=== PATIENT | male | born 1965 | race Caucasian/White ===

== ENCOUNTER 2016-09-20 10:45 | Emergency (ER) | payer MEDICAID ==
[~2016-09-20] VITALS: Ht 170.2 cm; Wt 80.0 kg
[~2016-09-20 10:45] MED LIST: ALLO300T2 PO; AMLO10TA80 PO; ATOR80TA PO; COLC0.6T66 PO; Folic Acid PO; GLIP10TA72 PO; Multivitamins,Ther W-Minerals PO; Propranolol Hcl PO
[2016-09-20] MEDS ORDERED: KETOROLAC 60MG/2ML VIAL IM ONE (11:45)
[2016-09-20 12:15] VITALS: BP 160/73
[2016-09-20] MEDS ORDERED: PREDNISONE 20MG TABLET PO ONE (13:15)
[2016-09-20 14:03] LABS: BASOPHILS % 0.9 % (0.0-2.0); EOSINOPHILS % 2.2 % (0.0-5.0); HEMATOCRIT. 35.1 % (42.0-52.0); HEMOGLOBIN. 11.8 g/dL (14.0-18.0); LYMPHOCYTES % 11.6 % (20.0-50.0); MEAN CORPUSCULAR HEMOGLOBIN 29.1 pg (28.0-32.0); MEAN CORPUSCULAR VOLUME 86.4 fL (80.0-94.0); MEAN PLATELET VOLUME 7.6 fl (7.4-10.4); MONOCYTES % 10.5 % (2.0-8.0); NEUTROPHILS % 74.8 % (40.0-76.0); PLATELET 208 x1000/uL (130-400); RED BLOOD CELL COUNT 4.07 mill/uL (4.7-6.1); RED CELL DISTRIBUTION WIDTH 14.8 % (11.6-14.6)
== END 2016-09-20 15:17 | disposition home or self-care (01) ==
LOC: ER 12:00
DX: M79.641 Pain in right hand (principal); M25.532 Pain in left wrist; E11.9 Type 2 diabetes mellitus without complications; M79.89 Other specified soft tissue disorders; F17.200 Nicotine dependence, unspecified, uncomplicated
CPT/HCPCS: 36415; 73110; 73130; 85025; 96372; 99285; J1885; J7512

== ENCOUNTER 2017-03-13 18:17 | Inpatient (IN) | payer MEDICAID ==
[~2017-03-13] VITALS: Ht 165.1 cm; Wt 77.1 kg
[~2017-03-13 18:17] MED LIST changes: +GLIP10TA3 PO; -GLIP10TA72 PO
[2017-03-13] MEDS ORDERED: NITROGLYCERIN OINT 1GM/INCH UDPKT TD STA (21:31)
[2017-03-13] MEDS ORDERED: MORPHINE SULFATE 4 MG/ML CPJ (NOT FOR IM USE) IV STA (21:31)
[2017-03-13] MEDS ORDERED: ASPIRIN 325MG EC TABLET PO ONE (21:45)
[2017-03-13 22:04] LABS: BASOPHILS % 1.4 % (0.0-2.0); HEMATOCRIT. 38.4 % (42.0-52.0); HEMOGLOBIN. 13.1 g/dL (14.0-18.0); LYMPHOCYTES % 22.4 % (20.0-50.0); MEAN CORPUSCULAR HEMOGLOBIN 30.4 pg (28.0-32.0); MEAN CORPUSCULAR VOLUME 89.2 fL (80.0-94.0); MEAN PLATELET VOLUME 7.5 fl (7.4-10.4); MONOCYTES % 14.1 % (2.0-8.0); NEUTROPHILS % 58.1 % (40.0-76.0); PLATELET 177 x1000/uL (130-400); RED BLOOD CELL COUNT 4.31 mill/uL (4.7-6.1); RED CELL DISTRIBUTION WIDTH 14.4 % (11.6-14.6)
[2017-03-13 22:11] LABS: CARBON DIOXIDE 26 mEq/L (21-32)
[2017-03-13 22:17] LABS: TROPONIN I < 0.02 ng/mL (0.00-0.04)
[2017-03-13 22:18] LABS: CHLORIDE 104 mEq/L (98-107)
[2017-03-14 09:00] VITALS: BP 190/100
[2017-03-14] MEDS ORDERED: CLONIDINE 0.1MG TABLET PO PRN (09:30)
[2017-03-14] MEDS ORDERED: DEXTROSE 50% WATER 50ML SYRINGE IV PRN (09:30)
[2017-03-14] MEDS ORDERED: NITROGLYCERIN 0.4MG TABLET SL SL PRN (09:30)
[2017-03-14] MEDS ORDERED: ONDANSETRON HCL 4MG/2ML VIAL IV PRN (09:30)
[2017-03-14 09:37] VITALS: BP 190/103
[2017-03-14] MEDS: METOPROLOL TARTRATE 50MG TABLET PO SCH ×2 (11:11→21:05)
[2017-03-14] MEDS: ASPIRIN 81MG TABLET PO SCH (11:12)
[2017-03-14] MEDS: AMLODIPINE 10MG TABLET PO SCH (11:12)
[2017-03-14] MEDS: ALLOPURINOL 300 MG TABLET PO SCH (11:15)
[2017-03-14] MEDS ORDERED: CLONIDINE 0.2MG TABLET PO PRN ×2 (11:30)
[2017-03-14] MEDS ORDERED: REGADENOSON 0.4 MG/5 ML IV NR (11:50)
[2017-03-14 12:00] VITALS: BP 152/91
[2017-03-14] MEDS: BLOOD SUGAR DIAGNOSTIC STRIP TEST SCH ×3 (12:04→21:07)
[2017-03-14] MEDS: INSULIN LISPRO 100 UNITS/ML SUBCUT SCH ×3 (12:50→21:07)
[2017-03-14] MEDS: CLONIDINE 0.1MG TABLET PO SCH ×2 (13:49→21:05)
[2017-03-14] MEDS: HYDRALAZINE HCL 25MG TABLET PO SCH ×2 (13:49→21:05)
[2017-03-14 14:02] LABS: *AMPHETAMINES SCREEN URINE NEGATIVE (NEGATIVE); *BARBITURATES SCREEN URINE NEGATIVE (NEGATIVE); *BENZODIAZEPINES SCREEN URINE NEGATIVE (NEGATIVE); *COCAINE SCREEN URINE NEGATIVE (NEGATIVE); CANNABINOID URINE SCREEN NEGATIVE (NEGATIVE); METHADONE URINE SCREEN NEGATIVE (NEGATIVE); OPIATES URINE SCREEN PRESUMTIVE POSITIVE (NEGATIVE); PHENCYCLIDINE URINE SCREEN NEGATIVE (NEGATIVE)
[2017-03-14 14:41] LABS: TROPONIN I < 0.02 ng/mL (0.00-0.04)
[2017-03-14 16:00] VITALS: BP 159/98
[2017-03-14 20:05] VITALS: BP 163/91
[2017-03-14] MEDS: HYDROCODONE/ACETAMINOPHEN 5/325MG TABLET PO PRN (20:16)
[2017-03-14] MEDS ORDERED: ATORVASTATIN CALCIUM 40MG TABLET PO SCH (21:00)
[2017-03-15] VITALS: BP 112/63
[2017-03-15 04:00] VITALS: BP 129/89
[2017-03-15] MEDS: HYDRALAZINE HCL 25MG TABLET PO SCH ×2 (06:00→15:09)
[2017-03-15] MEDS: CLONIDINE 0.1MG TABLET PO SCH ×2 (06:07→15:10)
[2017-03-15] MEDS: HYDROCODONE/ACETAMINOPHEN 5/325MG TABLET PO PRN (06:08)
[2017-03-15] MEDS: BLOOD SUGAR DIAGNOSTIC STRIP TEST SCH ×3 (06:15→17:20)
[2017-03-15 07:02] LABS: EOSINOPHILS % 3.1 % (0.0-5.0); HEMATOCRIT. 33.2 % (42.0-52.0); HEMOGLOBIN. 11.3 g/dL (14.0-18.0); LYMPHOCYTES % 14.2 % (20.0-50.0); MEAN CORPUSCULAR HEMOGLOBIN 30.2 pg (28.0-32.0); MEAN CORPUSCULAR VOLUME 88.4 fL (80.0-94.0); MONOCYTES % 9.9 % (2.0-8.0); NEUTROPHILS % 71.8 % (40.0-76.0); PLATELET 147 x1000/uL (130-400); RED BLOOD CELL COUNT 3.75 mill/uL (4.7-6.1); RED CELL DISTRIBUTION WIDTH 14.4 % (11.6-14.6)
[2017-03-15 07:42] LABS: CARBON DIOXIDE 26 mEq/L (21-32); CHLORIDE 103 mEq/L (98-107); HDL CHOLESTEROL 84 mg/dL (40-59); LDL CHOLESTEROL 165 mg/dL (5-100); TROPONIN I < 0.02 ng/mL (0.00-0.04)
[2017-03-15] MEDS: INSULIN LISPRO 100 UNITS/ML SUBCUT SCH ×2 (07:50→12:50)
[2017-03-15 08:14] VITALS: BP 115/83
[2017-03-15] MEDS ORDERED: REGADENOSON 0.4 MG/5 ML IV ONE (09:29)
[2017-03-15 12:18] VITALS: BP 141/95
[2017-03-15] MEDS: ALLOPURINOL 300 MG TABLET PO SCH (13:14)
[2017-03-15] MEDS: AMLODIPINE 10MG TABLET PO SCH (13:14)
[2017-03-15] MEDS: ASPIRIN 81MG TABLET PO SCH (13:15)
[2017-03-15] MEDS: METOPROLOL TARTRATE 50MG TABLET PO SCH (13:16)
[2017-03-15] MEDS ORDERED: SODIUM CHLORIDE 0.9% 10ML VIAL ONE (14:04)
[2017-03-15 16:12] VITALS: BP 119/74
[2017-03-15] MEDS ORDERED: HYDR100T26 PO (16:13)
[2017-03-15] MEDS ORDERED: METO100T16 PO (16:13)
[2017-03-15 17:51] VITALS: BP 135/76
[2017-03-15] MEDS ORDERED: METOPROLOL TARTRATE 100MG TABLET PO SCH (21:00)
[2017-03-15] MEDS ORDERED: ATORVASTATIN CALCIUM 40MG TABLET PO SCH (21:00)
== END 2017-03-15 18:05 | disposition home or self-care (01) | DRG 199 ==
LOC: ER 18:17 → 6WST 03-14 00:02 → EDBEDREQ 03-14 02:48 → ENRESERV 03-14 07:41
PROVIDERS: ADMIT Internal Medicine; ATTEND Internal Medicine
DX: I13.10 Hypertensive heart and chronic kidney disease without heart failure, with stage 1 through stage 4 chronic kidney disease, or unspecified chronic kidney disease (principal); E43 Unspecified severe protein-calorie malnutrition; E11.22 Type 2 diabetes mellitus with diabetic chronic kidney disease; M94.0 Chondrocostal junction syndrome [Tietze]; Z68.28 Body mass index [BMI] 28.0-28.9, adult; D64.9 Anemia, unspecified; N17.9 Acute kidney failure, unspecified; N18.3 Chronic kidney disease, stage 3 (moderate); E66.9 Obesity, unspecified; E78.00 Pure hypercholesterolemia, unspecified; E78.5 Hyperlipidemia, unspecified; F10.10 Alcohol abuse, uncomplicated; F17.210 Nicotine dependence, cigarettes, uncomplicated; R94.31 Abnormal electrocardiogram [ECG] [EKG]; I25.10 Atherosclerotic heart disease of native coronary artery without angina pectoris; M10.9 Gout, unspecified; Z82.49 Family history of ischemic heart disease and other diseases of the circulatory system; Z83.3 Family history of diabetes mellitus; Z79.899 Other long term (current) drug therapy; Z71.41 Alcohol abuse counseling and surveillance of alcoholic
CPT/HCPCS: 36415; 71045; 78452; 80053; 80061; 80305; 82553; 82962; 83036; 83690; 83735; 84443; 84484; 85025; 85379; 93005; 93017; 93306; 96374; 99285; A4216; A9500; J1815; J2270; J2785

== ENCOUNTER 2017-08-01 23:56 | Emergency (ER) | payer MEDICAID ==
[~2017-08-01] VITALS: Ht 170.2 cm; Wt 72.0 kg
[~2017-08-01 23:56] MED LIST changes: -COLC0.6T66 PO; +FERR325T23 PO; -Folic Acid PO; +HYDR100T26 PO; +METO100T16 PO; -Propranolol Hcl PO
[2017-08-02 06:45] VITALS: BP 128/80
== END 2017-08-02 06:54 | disposition home or self-care (01) ==
LOC: ER 23:56
DX: F10.129 Alcohol abuse with intoxication, unspecified (principal); M79.604 Pain in right leg; E11.9 Type 2 diabetes mellitus without complications; I10 Essential (primary) hypertension; Y90.5 Blood alcohol level of 100-119 mg/100 ml; Z86.73 Personal history of transient ischemic attack (TIA), and cerebral infarction without residual deficits
CPT/HCPCS: 36415; 99283; G0482; Z7610

== ENCOUNTER 2017-08-03 04:16 | Inpatient (IN) | payer MEDICAID ==
[~2017-08-03] VITALS: Ht 170.2 cm; Wt 94.8 kg
[2017-08-03] MEDS ORDERED: SODIUM CHLORIDE 0.9% 1,000 ML IV ONE (04:30)
[2017-08-03] MEDS ORDERED: DEXT 10% WATER 1,000 ML IV ONE (04:30)
[2017-08-03 05:13] LABS: BASOPHILS % 1.4 % (0.0-2.0); EOSINOPHILS % 2.4 % (0.0-5.0); HEMATOCRIT. 34.2 % (42.0-52.0); HEMOGLOBIN. 11.4 g/dL (14.0-18.0); LYMPHOCYTES % 22.6 % (20.0-50.0); MEAN CORPUSCULAR HEMOGLOBIN 28.1 pg (28.0-32.0); MEAN CORPUSCULAR VOLUME 84.3 fL (80.0-94.0); MEAN PLATELET VOLUME 7.6 fl (7.4-10.4); MONOCYTES % 5.2 % (2.0-8.0); NEUTROPHILS % 68.4 % (40.0-76.0); PLATELET 343 x1000/uL (130-400); RED BLOOD CELL COUNT 4.06 mill/uL (4.7-6.1); RED CELL DISTRIBUTION WIDTH 16.2 % (11.6-14.6)
[2017-08-03 05:24] LABS: CHLORIDE 110 mEq/L (98-107)
[2017-08-03 05:28] LABS: ETHANOL BLOOD 75 mg/dL
[2017-08-03 05:33] LABS: CREATINE KINASE 276 IU/L (39-308)
[2017-08-03 05:44] LABS: AMMONIA 10 uMol/L (<32)
[2017-08-03 07:02] LABS: CLARITY URINE CLEAR (CLEAR); COLOR URINE YELLOW (YELLOW); KETONES URINE NEGATIVE (NEGATIVE); LEUKOCYTE ESTERASE URINE NEGATIVE (NEGATIVE); NITRITE URINE NEGATIVE (NEGATIVE); OCCULT BLOOD URINE NEGATIVE (NEGATIVE); PROTEIN URINE 2+ (NEGATIVE); SPECIFIC GRAVITY URINE 1.007 (1.005-1.030); UROBILINOGEN URINE 0.2 E.U./dL (0.2-1.0)
[2017-08-03 07:30] LABS: *BARBITURATES SCREEN URINE NEGATIVE (NEGATIVE); CANNABINOID URINE SCREEN NEGATIVE (NEGATIVE); METHADONE URINE SCREEN NEGATIVE (NEGATIVE); OPIATES URINE SCREEN NEGATIVE (NEGATIVE); PHENCYCLIDINE URINE SCREEN NEGATIVE (NEGATIVE)
[2017-08-03 07:31] LABS: *BENZODIAZEPINES SCREEN URINE PRESUMTIVE POSITIVE (NEGATIVE); *COCAINE SCREEN URINE NEGATIVE (NEGATIVE)
[2017-08-03 07:37] LABS: *AMPHETAMINES SCREEN URINE NEGATIVE (NEGATIVE)
[2017-08-03 23:26] VITALS: BP 180/109
[2017-08-03 23:30] VITALS: BP 180/109
[2017-08-04] MEDS ORDERED: DEXTROSE 50% WATER 50ML SYRINGE IV PRN (01:15)
[2017-08-04] MEDS ORDERED: COLC0.6C3 PO (01:20)
[2017-08-04 04:00] VITALS: BP 150/91
[2017-08-04] MEDS: BLOOD SUGAR DIAGNOSTIC STRIP TEST SCH ×2 (05:57→13:00)
[2017-08-04] MEDS: HYDRALAZINE HCL 100MG TABLET PO SCH ×2 (05:57→14:16)
[2017-08-04] MEDS: INSULIN LISPRO 100 UNITS/ML SUBCUT SCH ×2 (06:13→13:04)
[2017-08-04] MEDS: HYDROCODONE/ACETAMINOPHEN 10/325MG TABLET PO PRN ×2 (06:39→14:16)
[2017-08-04 07:20] LABS: BASOPHILS % 0.9 % (0.0-2.0); EOSINOPHILS % 6.4 % (0.0-5.0); HEMATOCRIT. 31.6 % (42.0-52.0); HEMOGLOBIN. 10.6 g/dL (14.0-18.0); LYMPHOCYTES % 15.1 % (20.0-50.0); MEAN CORPUSCULAR HEMOGLOBIN 28.2 pg (28.0-32.0); MEAN CORPUSCULAR VOLUME 84.1 fL (80.0-94.0); MEAN PLATELET VOLUME 7.8 fl (7.4-10.4); MONOCYTES % 7.7 % (2.0-8.0); NEUTROPHILS % 69.9 % (40.0-76.0); PLATELET 297 x1000/uL (130-400); RED BLOOD CELL COUNT 3.75 mill/uL (4.7-6.1)
[2017-08-04 07:55] VITALS: BP 122/78
[2017-08-04 08:00] LABS: CHLORIDE 111 mEq/L (98-107)
[2017-08-04 08:15] LABS: HDL CHOLESTEROL 79 mg/dL (40-59); LDL CHOLESTEROL 52 mg/dL (5-100)
[2017-08-04] MEDS ORDERED: [UNRECOGNIZED DRUG - OTHER] PO SCH (09:00)
[2017-08-04] MEDS ORDERED: FOLIC ACID 1MG TABLET PO SCH (09:00)
[2017-08-04] MEDS ORDERED: MULTIVITAMINS,THER W-MINERALS TABLET PO SCH (09:00)
[2017-08-04] MEDS ORDERED: AMLODIPINE 10MG TABLET PO SCH (09:00)
[2017-08-04] MEDS ORDERED: ALLOPURINOL 300 MG TABLET PO SCH (09:00)
[2017-08-04] MEDS ORDERED: METOPROLOL TARTRATE 100MG TABLET PO SCH (09:00)
[2017-08-04] MEDS ORDERED: THIAMINE HCL 100MG TABLET PO SCH (09:00)
[2017-08-04] MEDS: FERROUS SULFATE 325MG TABLET PO SCH ×2 (09:18→13:05)
[2017-08-04] MEDS ORDERED: PNEUMOCOCCAL 23-VAL P-SAC VAC 0.5 ML IM ONE (10:00)
[2017-08-04 12:00] VITALS: BP 122/79
[2017-08-04 14:20] VITALS: BP 122/79
[2017-08-04] MEDS ORDERED: ATORVASTATIN CALCIUM 40MG TABLET PO SCH (21:00)
[2017-08-04] MEDS ORDERED: MEDICATION NOT ON FORMULARY EA (Atorvastatin Calcium (Lipitor) 80 MG) PO SCH (21:00)
== END 2017-08-04 15:44 | disposition home or self-care (01) | DRG 420 ==
LOC: ER 04:16 → 8WST 07:43 → ENRESERV 20:10
PROVIDERS: ADMIT Internal Medicine; ATTEND Internal Medicine
DX: E11.649 Type 2 diabetes mellitus with hypoglycemia without coma (principal); E44.0 Moderate protein-calorie malnutrition; N18.3 Chronic kidney disease, stage 3 (moderate); E11.22 Type 2 diabetes mellitus with diabetic chronic kidney disease; E88.09 Other disorders of plasma-protein metabolism, not elsewhere classified; I69.351 Hemiplegia and hemiparesis following cerebral infarction affecting right dominant side; I12.9 Hypertensive chronic kidney disease with stage 1 through stage 4 chronic kidney disease, or unspecified chronic kidney disease; E78.5 Hyperlipidemia, unspecified; M10.9 Gout, unspecified; Z60.2 Problems related to living alone; D64.9 Anemia, unspecified; F10.129 Alcohol abuse with intoxication, unspecified; Z86.73 Personal history of transient ischemic attack (TIA), and cerebral infarction without residual deficits; Z79.899 Other long term (current) drug therapy; Z68.32 Body mass index [BMI] 32.0-32.9, adult
CPT/HCPCS: 36415; 70450; 71045; 74176; 80053; 80061; 80305; 81003; 82140; 82550; 82962; 83036; 83605; 83690; 83880; 84484; 85025; 85610; 90732; 93005; G0482; J1815; J7030

== ENCOUNTER 2017-08-10 16:44 | Emergency (ER) | payer MEDICAID ==
[~2017-08-10] VITALS: Ht 167.6 cm; Wt 76.0 kg
[~2017-08-10 16:44] MED LIST changes: +COLC0.6C3 PO; -GLIP10TA3 PO
[2017-08-10] MEDS ORDERED: KETOROLAC 30MG/ML VIAL IM ONE (17:00)
[2017-08-10] MEDS ORDERED: MORPHINE SULFATE 10 MG/ML CPJ IM ONE (17:00)
[2017-08-10 17:35] LABS: BASOPHILS % 1.4 % (0.0-2.0); EOSINOPHILS % 6.7 % (0.0-5.0); HEMATOCRIT. 31.6 % (42.0-52.0); HEMOGLOBIN. 10.6 g/dL (14.0-18.0); LYMPHOCYTES % 30.7 % (20.0-50.0); MEAN CORPUSCULAR VOLUME 83.2 fL (80.0-94.0); MEAN PLATELET VOLUME 7.6 fl (7.4-10.4); MONOCYTES % 6.3 % (2.0-8.0); NEUTROPHILS % 54.9 % (40.0-76.0); PLATELET 256 x1000/uL (130-400); RED BLOOD CELL COUNT 3.79 mill/uL (4.7-6.1); RED CELL DISTRIBUTION WIDTH 15.8 % (11.6-14.6)
[2017-08-10 17:41] LABS: CHLORIDE 101 mEq/L (98-107)
[2017-08-10 17:42] LABS: INR 0.9; PARTIAL THROMBOPLASTIN TIME 29.6 sec (23.4-31.0); PROTHROMBIN TIME 9.8 sec (9.4-11.6)
[2017-08-10 17:49] LABS: CREATINE KINASE 206 IU/L (39-308)
[2017-08-10 19:48] VITALS: BP 140/70
== END 2017-08-10 19:51 | disposition home or self-care (01) ==
LOC: ER 16:44
DX: M71.21 Synovial cyst of popliteal space [Baker], right knee (principal); M71.22 Synovial cyst of popliteal space [Baker], left knee; M79.604 Pain in right leg; I10 Essential (primary) hypertension; E11.9 Type 2 diabetes mellitus without complications; M10.9 Gout, unspecified; F17.200 Nicotine dependence, unspecified, uncomplicated; F10.10 Alcohol abuse, uncomplicated; Y90.9 Presence of alcohol in blood, level not specified; Z86.73 Personal history of transient ischemic attack (TIA), and cerebral infarction without residual deficits
CPT/HCPCS: 36415; 80053; 82550; 83690; 84443; 84484; 85025; 85610; 85730; 93970; 96372; 99285; J1885; J2270

== ENCOUNTER 2017-08-25 17:13 | Emergency (ER) | payer MEDICAID ==
[~2017-08-25] VITALS: Ht 167.6 cm; Wt 87.0 kg
[2017-08-25 17:14] VITALS: BP 143/66
== END 2017-08-26 01:00 | disposition left against medical advice (07) ==
LOC: ER 17:20
DX: Z53.21 Procedure and treatment not carried out due to patient leaving prior to being seen by health care provider (principal)

== ENCOUNTER 2017-08-28 19:50 | Emergency (ER) | payer MEDICAID ==
[~2017-08-28] VITALS: Ht 167.6 cm; Wt 81.0 kg
[2017-08-28] MEDS ORDERED: KETOROLAC 30MG/ML VIAL IV STA (21:54)
[2017-08-28] MEDS ORDERED: SODIUM CHLORIDE 0.9% 1,000 ML IV ONE (21:54)
[2017-08-28 22:44] VITALS: BP 151/55
== END 2017-08-29 01:13 | disposition home or self-care (01) ==
LOC: ER 20:19
DX: M10.9 Gout, unspecified (principal); E11.9 Type 2 diabetes mellitus without complications; I10 Essential (primary) hypertension; Z86.73 Personal history of transient ischemic attack (TIA), and cerebral infarction without residual deficits; F10.129 Alcohol abuse with intoxication, unspecified
CPT/HCPCS: 96374; 99285; J1885; J7030; J7040; Z7610

== ENCOUNTER 2017-09-26 22:41 | Inpatient (IN) | payer MEDICAID ==
[~2017-09-26] VITALS: Ht 170.2 cm; Wt 72.6 kg
[2017-09-27 00:22] LABS: BASOPHILS % 1.7 % (0.0-2.0); EOSINOPHILS % 2.8 % (0.0-5.0); HEMATOCRIT. 24.6 % (42.0-52.0); HEMOGLOBIN. 8.2 g/dL (14.0-18.0); LYMPHOCYTES % 26.3 % (20.0-50.0); MEAN CORPUSCULAR HEMOGLOBIN 28.7 pg (28.0-32.0); MEAN CORPUSCULAR VOLUME 85.9 fL (80.0-94.0); MEAN PLATELET VOLUME 7.3 fl (7.4-10.4); MONOCYTES % 10.9 % (2.0-8.0); NEUTROPHILS % 58.3 % (40.0-76.0); PLATELET 205 x1000/uL (130-400); RED BLOOD CELL COUNT 2.86 mill/uL (4.7-6.1); RED CELL DISTRIBUTION WIDTH 19.8 % (11.6-14.6)
[2017-09-27 00:24] LABS: CHLORIDE 115 mEq/L (98-107)
[2017-09-27] MEDS ORDERED: SODIUM CHLORIDE 0.9% 1,000 ML IV ONE (00:46)
[2017-09-27 04:20] VITALS: BP 130/78
[2017-09-27] MEDS ORDERED: ONDANSETRON 4MG ODT PO PRN (05:30)
[2017-09-27] MEDS ORDERED: SODIUM CHLORIDE 0.9% 1,000 ML IV SCH (05:30)
[2017-09-27] MEDS ORDERED: HYDROCODONE/ACETAMINOPHEN 10/325MG TABLET PO PRN (05:30)
[2017-09-27] MEDS ORDERED: DEXTROSE 50% WATER 50ML SYRINGE IV PRN (05:30)
[2017-09-27] MEDS ORDERED: ALLO100T MT (05:37)
[2017-09-27] MEDS: INSULIN LISPRO 100 UNITS/ML SUBCUT SCH ×4 (06:32→20:55)
[2017-09-27] MEDS: BLOOD SUGAR DIAGNOSTIC STRIP TEST SCH ×4 (06:32→20:55)
[2017-09-27 08:00] VITALS: BP 138/77
[2017-09-27] MEDS: ALLOPURINOL 100 MG TABLET PO SCH (08:29)
[2017-09-27] MEDS: THIAMINE HCL 100MG TABLET PO SCH (08:29)
[2017-09-27] MEDS: MULTIVITAMINS,THER W-MINERALS TABLET PO SCH (08:29)
[2017-09-27] MEDS: AMLODIPINE 10MG TABLET PO SCH (08:29)
[2017-09-27] MEDS: FOLIC ACID 1MG TABLET PO SCH (08:29)
[2017-09-27] MEDS ORDERED: MEDICATION NOT ON FORMULARY EA (Atorvastatin Calcium (Lipitor) 80 MG) PO SCH (09:00)
[2017-09-27] MEDS ORDERED: MEDICATION NOT ON FORMULARY EA (Allopurinol 1 TAB) MT SCH (09:00)
[2017-09-27] MEDS ORDERED: FAMOTIDINE 20MG TABLET PO SCH ×2 (09:00→21:00)
[2017-09-27] MEDS ORDERED: [UNRECOGNIZED DRUG - OTHER] PO SCH (09:00)
[2017-09-27 10:03] LABS: BASOPHILS % 1.4 % (0.0-2.0); EOSINOPHILS % 3.9 % (0.0-5.0); HEMATOCRIT. 28.2 % (42.0-52.0); HEMOGLOBIN. 9.3 g/dL (14.0-18.0); LYMPHOCYTES % 25.7 % (20.0-50.0); MEAN CORPUSCULAR HEMOGLOBIN 28.4 pg (28.0-32.0); MEAN CORPUSCULAR VOLUME 85.9 fL (80.0-94.0); MEAN PLATELET VOLUME 7.8 fl (7.4-10.4); MONOCYTES % 11.1 % (2.0-8.0); NEUTROPHILS % 57.9 % (40.0-76.0); PLATELET 225 x1000/uL (130-400); RED BLOOD CELL COUNT 3.28 mill/uL (4.7-6.1); RED CELL DISTRIBUTION WIDTH 20.1 % (11.6-14.6)
[2017-09-27] MEDS: METOPROLOL TARTRATE 25MG TABLET PO SCH ×2 (10:09→20:52)
[2017-09-27 12:00] VITALS: BP 147/76
[2017-09-27] MEDS ORDERED: CHLORDIAZEPOXIDE 25MG CAPSULE PO PRN (14:00)
[2017-09-27] MEDS: COLCHICINE 0.6MG TABLET PO SCH (15:34)
[2017-09-27 16:00] VITALS: BP 158/85
[2017-09-27] MEDS: POTASSIUM CHLORIDE INJ 10 MEQ in SODIUM CHLORIDE 0.45% 1,000 ML IV SCH (16:17)
[2017-09-27] MEDS: PANTOPRAZOLE SODIUM 40 MG/VIAL IV SCH (17:31)
[2017-09-27 17:46] LABS: CLARITY URINE CLEAR (CLEAR); COLOR URINE YELLOW (YELLOW); KETONES URINE NEGATIVE (NEGATIVE); LEUKOCYTE ESTERASE URINE NEGATIVE (NEGATIVE); NITRITE URINE NEGATIVE (NEGATIVE); OCCULT BLOOD URINE TRACE (NEGATIVE); PH URINE 5.5 (4.5-8.0); PROTEIN URINE 2+ (NEGATIVE); SPECIFIC GRAVITY URINE 1.011 (1.005-1.030); UROBILINOGEN URINE 0.2 E.U./dL (0.2-1.0)
[2017-09-27 17:56] LABS: *AMPHETAMINES SCREEN URINE NEGATIVE (NEGATIVE); *BARBITURATES SCREEN URINE NEGATIVE (NEGATIVE); *BENZODIAZEPINES SCREEN URINE NEGATIVE (NEGATIVE); *COCAINE SCREEN URINE NEGATIVE (NEGATIVE); METHADONE URINE SCREEN NEGATIVE (NEGATIVE); OPIATES URINE SCREEN PRESUMTIVE POSITIVE (NEGATIVE)
[2017-09-27 17:57] LABS: CANNABINOID URINE SCREEN NEGATIVE (NEGATIVE); PHENCYCLIDINE URINE SCREEN NEGATIVE (NEGATIVE)
[2017-09-27 18:34] LABS: TOTAL IRON BINDING CAPACITY 312 ug/dL (250-450)
[2017-09-27 19:04] LABS: VITAMIN B12 SERUM 600 pg/mL (211-911)
[2017-09-27 19:06] LABS: FOLIC ACID (FOLATE) SERUM > 20.00 ng/mL (>5.38)
[2017-09-27 20:00] VITALS: BP 166/89
[2017-09-27] MEDS: ATORVASTATIN CALCIUM 40MG TABLET PO SCH (20:52)
[2017-09-27] MEDS ORDERED: ATORVASTATIN CALCIUM 40MG TABLET PO SCH (21:00)
[2017-09-28] VITALS: BP 156/86
[2017-09-28 04:00] VITALS: BP 155/88
[2017-09-28] MEDS: INSULIN LISPRO 100 UNITS/ML SUBCUT SCH ×4 (06:48→20:43)
[2017-09-28] MEDS: BLOOD SUGAR DIAGNOSTIC STRIP TEST SCH ×4 (06:48→20:42)
[2017-09-28 07:24] LABS: EOSINOPHILS % 3.8 % (0.0-5.0); HEMATOCRIT. 28.7 % (42.0-52.0); HEMOGLOBIN. 9.6 g/dL (14.0-18.0); LYMPHOCYTES % 18.8 % (20.0-50.0); MEAN CORPUSCULAR HEMOGLOBIN 28.5 pg (28.0-32.0); MEAN CORPUSCULAR VOLUME 85.2 fL (80.0-94.0); MEAN PLATELET VOLUME 7.7 fl (7.4-10.4); MONOCYTES % 10.3 % (2.0-8.0); NEUTROPHILS % 66.1 % (40.0-76.0); PLATELET 219 x1000/uL (130-400); RED BLOOD CELL COUNT 3.36 mill/uL (4.7-6.1); RED CELL DISTRIBUTION WIDTH 19.7 % (11.6-14.6)
[2017-09-28 08:00] VITALS: BP 160/85
[2017-09-28 08:07] LABS: CHLORIDE 108 mEq/L (98-107)
[2017-09-28 08:19] LABS: PHOSPHORUS 2.7 mg/dL (2.5-4.9)
[2017-09-28] MEDS: MULTIVITAMINS,THER W-MINERALS TABLET PO SCH (08:59)
[2017-09-28] MEDS: PANTOPRAZOLE SODIUM 40 MG/VIAL IV SCH ×2 (08:59→16:35)
[2017-09-28] MEDS: THIAMINE HCL 100MG TABLET PO SCH (09:00)
[2017-09-28] MEDS: ALLOPURINOL 100 MG TABLET PO SCH (09:00)
[2017-09-28] MEDS ORDERED: POTASSIUM CHLORIDE 20MEQ TABLET SR PO SCH (09:00)
[2017-09-28] MEDS: POTASSIUM CHLORIDE INJ 10 MEQ in SODIUM CHLORIDE 0.45% 1,000 ML IV SCH (09:00)
[2017-09-28] MEDS: METOPROLOL TARTRATE 25MG TABLET PO SCH ×2 (09:00→20:40)
[2017-09-28] MEDS: AMLODIPINE 10MG TABLET PO SCH (09:00)
[2017-09-28] MEDS: COLCHICINE 0.6MG TABLET PO SCH (09:00)
[2017-09-28] MEDS: FOLIC ACID 1MG TABLET PO SCH (09:00)
[2017-09-28] MEDS ORDERED: MAGNESIUM 4 G PREMIX 100 ML IV SCH (10:00)
[2017-09-28 12:00] VITALS: BP 135/84
[2017-09-28] MEDS ORDERED: MAGNESIUM CITRATE 300ML SOLUTION PO SCH (12:45)
[2017-09-28] MEDS ORDERED: POTASSIUM CHLORIDE INJ 20 MEQ in SODIUM CHLORIDE 0.45% 1,000 ML IV SCH (13:30)
[2017-09-28] MEDS ORDERED: SODIUM CHL 0.45% + KCL 20MEQ/L 1,000 ML IV SCH (13:30)
[2017-09-28] MEDS: CHLORDIAZEPOXIDE 25MG CAPSULE PO SCH ×2 (13:53→21:27)
[2017-09-28 16:00] VITALS: BP 142/75
[2017-09-28 20:00] VITALS: BP 161/90
[2017-09-28] MEDS: ATORVASTATIN CALCIUM 40MG TABLET PO SCH (20:40)
[2017-09-29] VITALS: BP 150/92
[2017-09-29 04:00] VITALS: BP 115/82
[2017-09-29] MEDS: CHLORDIAZEPOXIDE 25MG CAPSULE PO SCH (05:55)
[2017-09-29 06:39] LABS: EOSINOPHILS % 2.9 % (0.0-5.0); HEMATOCRIT. 29.9 % (42.0-52.0); HEMOGLOBIN. 9.9 g/dL (14.0-18.0); LYMPHOCYTES % 19.5 % (20.0-50.0); MEAN CORPUSCULAR HEMOGLOBIN 28.5 pg (28.0-32.0); MEAN CORPUSCULAR VOLUME 85.8 fL (80.0-94.0); MEAN PLATELET VOLUME 7.8 fl (7.4-10.4); MONOCYTES % 12.3 % (2.0-8.0); NEUTROPHILS % 64.3 % (40.0-76.0); PLATELET 212 x1000/uL (130-400); RED BLOOD CELL COUNT 3.48 mill/uL (4.7-6.1); RED CELL DISTRIBUTION WIDTH 19.4 % (11.6-14.6)
[2017-09-29] MEDS: BLOOD SUGAR DIAGNOSTIC STRIP TEST SCH (07:10)
[2017-09-29 07:21] LABS: CHLORIDE 104 mEq/L (98-107)
[2017-09-29 07:35] LABS: PHOSPHORUS 2.5 mg/dL (2.5-4.9)
[2017-09-29] MEDS: INSULIN LISPRO 100 UNITS/ML SUBCUT SCH (07:40)
[2017-09-29 08:00] VITALS: BP 140/86
[2017-09-29] MEDS: MULTIVITAMINS,THER W-MINERALS TABLET PO SCH (09:05)
[2017-09-29] MEDS: COLCHICINE 0.6MG TABLET PO SCH (09:05)
[2017-09-29] MEDS: THIAMINE HCL 100MG TABLET PO SCH (09:05)
[2017-09-29] MEDS: AMLODIPINE 10MG TABLET PO SCH (09:05)
[2017-09-29] MEDS: METOPROLOL TARTRATE 25MG TABLET PO SCH (09:06)
[2017-09-29] MEDS: PANTOPRAZOLE SODIUM 40 MG/VIAL IV SCH (09:06)
[2017-09-29] MEDS: ALLOPURINOL 100 MG TABLET PO SCH (09:06)
[2017-09-29] MEDS: FOLIC ACID 1MG TABLET PO SCH (09:06)
[2017-09-29] MEDS ORDERED: POTASSIUM CHLORIDE 20MEQ TABLET SR PO SCH (11:15)
[2017-09-29 12:00] VITALS: BP 130/77
[2017-09-29] MEDS ORDERED: L25 MT (13:29)
[2017-09-29 13:44] VITALS: BP 130/77
[2017-09-29] MEDS ORDERED: CHLORDIAZEPOXIDE 25MG CAPSULE PO SCH (14:00)
== END 2017-09-29 15:33 | disposition home or self-care (01) | DRG 469 ==
LOC: ER 22:41 → 8WST 09-27 01:08 → EDBEDREQ 09-27 01:35 → EDBEDREQSVC 09-27 01:40 → ENRESERV 09-27 02:42
PROVIDERS: ADMIT Internal Medicine; ATTEND Internal Medicine
DX: N17.0 Acute kidney failure with tubular necrosis (principal); E87.0 Hyperosmolality and hypernatremia; E11.22 Type 2 diabetes mellitus with diabetic chronic kidney disease; E44.0 Moderate protein-calorie malnutrition; I12.9 Hypertensive chronic kidney disease with stage 1 through stage 4 chronic kidney disease, or unspecified chronic kidney disease; N17.9 Acute kidney failure, unspecified; K92.1 Melena; N18.3 Chronic kidney disease, stage 3 (moderate); E78.5 Hyperlipidemia, unspecified; E87.6 Hypokalemia; F17.210 Nicotine dependence, cigarettes, uncomplicated; Y90.8 Blood alcohol level of 240 mg/100 ml or more; M10.9 Gout, unspecified; G89.29 Other chronic pain; M54.2 Cervicalgia; Z60.2 Problems related to living alone; D63.8 Anemia in other chronic diseases classified elsewhere; F10.220 Alcohol dependence with intoxication, uncomplicated; M21.612 Bunion of left foot; R74.0 Nonspecific elevation of levels of transaminase and lactic acid dehydrogenase [LDH]; F10.230 Alcohol dependence with withdrawal, uncomplicated; K59.00 Constipation, unspecified; E83.42 Hypomagnesemia; Z82.49 Family history of ischemic heart disease and other diseases of the circulatory system; Z83.3 Family history of diabetes mellitus; Z79.899 Other long term (current) drug therapy; I69.351 Hemiplegia and hemiparesis following cerebral infarction affecting right dominant side; Z68.25 Body mass index [BMI] 25.0-25.9, adult
CPT/HCPCS: 36415; 80048; 80053; 80061; 80305; 81003; 82270; 82607; 82728; 82746; 82962; 83036; 83540; 83550; 83735; 84100; 84484; 84550; 85025; 93005; 93306; 96360; 99285; C1893; C9113; G0482; J1815; J3475; J3480; J7030

== ENCOUNTER 2017-10-10 21:32 | Emergency (ER) | payer MEDICAID ==
[~2017-10-10 21:32] MED LIST changes: +ALLO100T MT; -ALLO300T2 PO; -HYDR100T26 PO; +L25 MT; -METO100T16 PO
== END 2017-10-11 02:12 | disposition left against medical advice (07) ==
LOC: ER 21:32
DX: R42 Dizziness and giddiness (principal); M79.669 Pain in unspecified lower leg; Z53.21 Procedure and treatment not carried out due to patient leaving prior to being seen by health care provider
CPT/HCPCS: A4565

== ENCOUNTER 2017-10-14 20:51 | Emergency (ER) | payer MEDICAID ==
[~2017-10-14] VITALS: Ht 165.1 cm; Wt 69.5 kg
[2017-10-14] MEDS ORDERED: SODIUM CHLORIDE 0.9% 1,000 ML IV ONE (22:56)
[2017-10-14] MEDS ORDERED: MORPHINE SULFATE 4 MG/ML CPJ (NOT FOR IM USE) IV STA (22:56)
[2017-10-14] MEDS ORDERED: ONDANSETRON HCL 4MG/2ML VIAL IV STA (22:56)
[2017-10-14 23:55] LABS: BASOPHILS % 1.8 % (0.0-2.0); EOSINOPHILS % 5.9 % (0.0-5.0); HEMATOCRIT. 29.3 % (42.0-52.0); HEMOGLOBIN. 9.9 g/dL (14.0-18.0); LYMPHOCYTES % 35.6 % (20.0-50.0); MEAN CORPUSCULAR HEMOGLOBIN 28.7 pg (28.0-32.0); MEAN CORPUSCULAR VOLUME 85.5 fL (80.0-94.0); MEAN PLATELET VOLUME 7.7 fl (7.4-10.4); MONOCYTES % 8.4 % (2.0-8.0); NEUTROPHILS % 48.3 % (40.0-76.0); PLATELET 221 x1000/uL (130-400); RED BLOOD CELL COUNT 3.43 mill/uL (4.7-6.1); RED CELL DISTRIBUTION WIDTH 18.1 % (11.6-14.6)
[2017-10-15 00:02] LABS: PROTHROMBIN TIME 10.5 sec (9.1-11.1)
[2017-10-15 00:16] LABS: CHLORIDE 112 mEq/L (98-107)
[2017-10-15 00:20] LABS: ETHANOL BLOOD 188 mg/dL
[2017-10-15 02:18] LABS: CLARITY URINE CLEAR (CLEAR); COLOR URINE YELLOW (YELLOW); KETONES URINE NEGATIVE (NEGATIVE); LEUKOCYTE ESTERASE URINE NEGATIVE (NEGATIVE); NITRITE URINE NEGATIVE (NEGATIVE); OCCULT BLOOD URINE NEGATIVE (NEGATIVE); PROTEIN URINE 3+ (NEGATIVE); SPECIFIC GRAVITY URINE 1.009 (1.005-1.030); UROBILINOGEN URINE 0.2 E.U./dL (0.2-1.0)
[2017-10-15 02:33] LABS: *AMPHETAMINES SCREEN URINE NEGATIVE (NEGATIVE); *BARBITURATES SCREEN URINE NEGATIVE (NEGATIVE); *BENZODIAZEPINES SCREEN URINE PRESUMTIVE POSITIVE (NEGATIVE); *COCAINE SCREEN URINE NEGATIVE (NEGATIVE)
[2017-10-15 02:34] LABS: CANNABINOID URINE SCREEN NEGATIVE (NEGATIVE); METHADONE URINE SCREEN NEGATIVE (NEGATIVE); OPIATES URINE SCREEN NEGATIVE (NEGATIVE); PHENCYCLIDINE URINE SCREEN NEGATIVE (NEGATIVE)
[2017-10-15 05:16] VITALS: BP 138/87
== END 2017-10-15 05:20 | disposition home or self-care (01) ==
LOC: ER 20:51
DX: R10.13 Epigastric pain (principal); E11.9 Type 2 diabetes mellitus without complications; Z86.73 Personal history of transient ischemic attack (TIA), and cerebral infarction without residual deficits; F17.200 Nicotine dependence, unspecified, uncomplicated; F15.10 Other stimulant abuse, uncomplicated; Z98.890 Other specified postprocedural states; Z79.899 Other long term (current) drug therapy
CPT/HCPCS: 36415; 71045; 74176; 80053; 80305; 81003; 83605; 83690; 84484; 85025; 85610; 93005; 96374; 96375; 99285; G0482; J2270; J2405; J7030

== ENCOUNTER 2017-10-28 16:16 | Emergency (ER) | payer MEDICAID ==
[~2017-10-28] VITALS: Ht 167.6 cm; Wt 70.0 kg
[2017-10-28 16:37] VITALS: BP 141/81
== END 2017-10-28 19:30 | disposition left against medical advice (07) ==
LOC: ER 16:22
DX: Z53.21 Procedure and treatment not carried out due to patient leaving prior to being seen by health care provider (principal)

== ENCOUNTER 2017-10-31 12:17 | Emergency (ER) | payer MEDICAID ==
[~2017-10-31] VITALS: Ht 165.1 cm; Wt 81.0 kg
[2017-10-31] MEDS ORDERED: BACITRACIN ZINC OINT UDPKT TOP ONE (17:00)
[2017-10-31] MEDS ORDERED: ACETAMINOPHEN WITH CODEINE 300/30MG TABLET PO ONE (17:00)
[2017-10-31 17:17] VITALS: BP 125/70
== END 2017-10-31 18:55 | disposition home or self-care (01) ==
LOC: ER 12:17
DX: S80.02XA Contusion of left knee, initial encounter (principal); E11.9 Type 2 diabetes mellitus without complications; I10 Essential (primary) hypertension; N28.9 Disorder of kidney and ureter, unspecified; Z79.899 Other long term (current) drug therapy; Z86.73 Personal history of transient ischemic attack (TIA), and cerebral infarction without residual deficits; W19.XXXA Unspecified fall, initial encounter; Y93.89 Activity, other specified; Y92.89 Other specified places as the place of occurrence of the external cause; Y99.8 Other external cause status
CPT/HCPCS: 73562; 99284

== ENCOUNTER 2017-11-10 20:31 | Emergency (ER) | payer MEDICAID ==
[~2017-11-10] VITALS: Ht 170.2 cm; Wt 81.8 kg
[2017-11-11] MEDS ORDERED: IBUPROFEN 600MG TABLET PO ONE (07:15)
[2017-11-11 09:01] VITALS: BP 116/72
== END 2017-11-11 09:15 | disposition home or self-care (01) ==
LOC: ER 20:31
DX: M25.561 Pain in right knee (principal); F10.129 Alcohol abuse with intoxication, unspecified; E11.9 Type 2 diabetes mellitus without complications; F17.200 Nicotine dependence, unspecified, uncomplicated; Y90.4 Blood alcohol level of 80-99 mg/100 ml; Z86.73 Personal history of transient ischemic attack (TIA), and cerebral infarction without residual deficits; Z87.81 Personal history of (healed) traumatic fracture
CPT/HCPCS: 36415; 73562; 82962; 99285; G0482

== ENCOUNTER 2017-11-21 20:32 | Inpatient (IN) | payer MEDICAID ==
[~2017-11-21] VITALS: Ht 165.1 cm; Wt 81.6 kg
[2017-11-21] MEDS ORDERED: ACETAMINOPHEN 325MG TABLET PO ONE (22:00)
[2017-11-21 22:57] LABS: BASOPHILS % 1.3 % (0.0-2.0); EOSINOPHILS % 7.1 % (0.0-5.0); HEMATOCRIT. 27.9 % (42.0-52.0); HEMOGLOBIN. 9.4 g/dL (14.0-18.0); LYMPHOCYTES % 21.8 % (20.0-50.0); MEAN CORPUSCULAR HEMOGLOBIN 30.1 pg (28.0-32.0); MEAN CORPUSCULAR VOLUME 89.8 fL (80.0-94.0); MEAN PLATELET VOLUME 8.4 fl (7.4-10.4); MONOCYTES % 8.1 % (2.0-8.0); NEUTROPHILS % 61.7 % (40.0-76.0); PLATELET 230 x1000/uL (130-400); RED BLOOD CELL COUNT 3.11 mill/uL (4.7-6.1); RED CELL DISTRIBUTION WIDTH 16.3 % (11.6-14.6)
[2017-11-21 23:03] LABS: CHLORIDE 106 mEq/L (98-107)
[2017-11-21 23:06] LABS: ETHANOL BLOOD 18 mg/dL
[2017-11-22] MEDS ORDERED: MAGNESIUM/ALUMINUM HYDROXIDE/SIMETHICONE 30ML UDC PO PRN
[2017-11-22] MEDS ORDERED: IPRATROPIUM/ALBUTEROL 0.5-3(2.5)MG/3ML NEB INH PRN
[2017-11-22] MEDS ORDERED: DOCUSATE SODIUM 100MG CAPSULE PO PRN
[2017-11-22] MEDS ORDERED: ONDANSETRON HCL 4MG/2ML INJ IV PRN
[2017-11-22] MEDS ORDERED: LORAZEPAM 2MG/ML CPJ IV PRN
[2017-11-22] MEDS ORDERED: CLONIDINE 0.1MG TABLET PO PRN
[2017-11-22] MEDS ORDERED: ACETAMINOPHEN 325MG TABLET PO PRN
[2017-11-22] MEDS ORDERED: HYDROCODONE/ACETAMINOPHEN 5/325MG TABLET PO PRN
[2017-11-22 03:00] VITALS: BP 109/88
[2017-11-22] MEDS ORDERED: MVI, ADULT NO.1 10 ML, FOLIC ACID 1 MG, THIAMINE HCL 100 MG in SODIUM CHLORIDE 0.9% 1,0... IV NR ×4 (05:00)
[2017-11-22] MEDS: CHLORDIAZEPOXIDE 25MG CAPSULE PO SCH ×3 (05:36→20:42)
[2017-11-22 05:57] LABS: CLARITY URINE CLEAR (CLEAR); COLOR URINE YELLOW (YELLOW); KETONES URINE NEGATIVE (NEGATIVE); LEUKOCYTE ESTERASE URINE NEGATIVE (NEGATIVE); NITRITE URINE NEGATIVE (NEGATIVE); OCCULT BLOOD URINE NEGATIVE (NEGATIVE); PH URINE 5.5 (4.5-8.0); PROTEIN URINE 2+ (NEGATIVE); SPECIFIC GRAVITY URINE 1.011 (1.005-1.030); UROBILINOGEN URINE 0.2 E.U./dL (0.2-1.0)
[2017-11-22 06:00] VITALS: BP 116/82
[2017-11-22 06:47] LABS: *BARBITURATES SCREEN URINE NEGATIVE (NEGATIVE); CANNABINOID URINE SCREEN NEGATIVE (NEGATIVE); PHENCYCLIDINE URINE SCREEN NEGATIVE (NEGATIVE)
[2017-11-22 06:48] LABS: *AMPHETAMINES SCREEN URINE NEGATIVE (NEGATIVE); *BENZODIAZEPINES SCREEN URINE PRESUMTIVE POSITIVE (NEGATIVE); *COCAINE SCREEN URINE NEGATIVE (NEGATIVE); METHADONE URINE SCREEN NEGATIVE (NEGATIVE); OPIATES URINE SCREEN NEGATIVE (NEGATIVE)
[2017-11-22 08:00] VITALS: BP 139/79
[2017-11-22] MEDS: ENOXAPARIN 40MG/0.4ML SYR SUBCUT SCH (09:38)
[2017-11-22 09:41] LABS: BASOPHILS % 0.8 % (0.0-2.0); EOSINOPHILS % 6.2 % (0.0-5.0); HEMATOCRIT. 26.4 % (42.0-52.0); HEMOGLOBIN. 8.8 g/dL (14.0-18.0); LYMPHOCYTES % 14.4 % (20.0-50.0); MEAN CORPUSCULAR VOLUME 89.6 fL (80.0-94.0); MONOCYTES % 9.8 % (2.0-8.0); NEUTROPHILS % 68.8 % (40.0-76.0); RED BLOOD CELL COUNT 2.94 mill/uL (4.7-6.1); RED CELL DISTRIBUTION WIDTH 15.9 % (11.6-14.6)
[2017-11-22] MEDS ORDERED: CHLORDIAZEPOXIDE 25MG CAPSULE PO PRN (09:45)
[2017-11-22] MEDS ORDERED: NITROGLYCERIN 0.4MG TABLET SL SL PRN (10:00)
[2017-11-22 10:30] LABS: MEAN PLATELET VOLUME 8.3 fl (7.4-10.4); PLATELET 169 x1000/uL (130-400)
[2017-11-22 11:25] LABS: PHOSPHORUS 3.9 mg/dL (2.5-4.9)
[2017-11-22 12:00] VITALS: BP 136/73
[2017-11-22] MEDS: ASPIRIN 81MG TABLET PO SCH (13:04)
[2017-11-22] MEDS: AMLODIPINE 10MG TABLET PO SCH (13:04)
[2017-11-22] MEDS: ALLOPURINOL 100 MG TABLET PO SCH (13:04)
[2017-11-22] MEDS: FERROUS SULFATE 325MG TABLET PO SCH (13:04)
[2017-11-22] MEDS: SODIUM CHLORIDE 0.9% 1,000 ML IV SCH (13:05)
[2017-11-22 16:00] VITALS: BP 134/80
[2017-11-22 16:48] LABS: CREATINE KINASE 255 IU/L (39-308); CREATINE KINASE MB FRACTION 3.1 ng/mL (0.5-3.6)
[2017-11-22 20:00] VITALS: BP_SYST 144; BP_SYST 146; BP_DIAS 79
[2017-11-22] MEDS ORDERED: ATORVASTATIN CALCIUM 40MG TABLET PO SCH (21:00)
[2017-11-22] MEDS: NEOMY SULF/BACITRAC ZN/POLY OINT 28GM TOP SCH (21:00)
[2017-11-23] VITALS: BP 138/78
[2017-11-23] MEDS: SODIUM CHLORIDE 0.9% 1,000 ML IV SCH ×2 (02:41→15:24)
[2017-11-23 04:00] VITALS: BP 143/83
[2017-11-23] MEDS: CHLORDIAZEPOXIDE 25MG CAPSULE PO SCH ×2 (05:51→13:09)
[2017-11-23 07:26] LABS: BASOPHILS % 0.6 % (0.0-2.0); EOSINOPHILS % 4.7 % (0.0-5.0); HEMATOCRIT. 28.8 % (42.0-52.0); HEMOGLOBIN. 9.6 g/dL (14.0-18.0); LYMPHOCYTES % 13.7 % (20.0-50.0); MEAN CORPUSCULAR HEMOGLOBIN 29.9 pg (28.0-32.0); MEAN CORPUSCULAR VOLUME 89.2 fL (80.0-94.0); MONOCYTES % 8.5 % (2.0-8.0); NEUTROPHILS % 72.5 % (40.0-76.0); PLATELET 187 x1000/uL (130-400); RED BLOOD CELL COUNT 3.23 mill/uL (4.7-6.1); RED CELL DISTRIBUTION WIDTH 15.9 % (11.6-14.6)
[2017-11-23 08:00] VITALS: BP 144/82
[2017-11-23] MEDS ORDERED: MULTIVITAMINS,THER W-MINERALS TABLET PO SCH (09:00)
[2017-11-23] MEDS ORDERED: FOLIC ACID 1MG TABLET PO SCH (09:00)
[2017-11-23] MEDS ORDERED: THIAMINE HCL 100MG TABLET PO SCH (09:00)
[2017-11-23] MEDS: NEOMY SULF/BACITRAC ZN/POLY OINT 28GM TOP SCH (09:35)
[2017-11-23] MEDS: ASPIRIN 81MG TABLET PO SCH (09:35)
[2017-11-23] MEDS: ENOXAPARIN 40MG/0.4ML SYR SUBCUT SCH (09:35)
[2017-11-23] MEDS: AMLODIPINE 10MG TABLET PO SCH (09:35)
[2017-11-23] MEDS: FERROUS SULFATE 325MG TABLET PO SCH ×4 (09:36→17:36)
[2017-11-23] MEDS: ALLOPURINOL 100 MG TABLET PO SCH (09:50)
[2017-11-23 12:00] VITALS: BP 130/76
[2017-11-23 16:00] VITALS: BP 146/79
[2017-11-23 16:15] VITALS: BP 146/79
== END 2017-11-23 20:08 | disposition home or self-care (01) | DRG 469 ==
LOC: ER 20:32 → CMPBEDREQ 22:01 → 7WST 23:31 → ENRESERV 11-22 01:38
PROVIDERS: ADMIT Internal Medicine; ATTEND Internal Medicine
DX: N17.9 Acute kidney failure, unspecified (principal); E11.22 Type 2 diabetes mellitus with diabetic chronic kidney disease; E44.0 Moderate protein-calorie malnutrition; I69.351 Hemiplegia and hemiparesis following cerebral infarction affecting right dominant side; R07.89 Other chest pain; N18.3 Chronic kidney disease, stage 3 (moderate); D64.9 Anemia, unspecified; E78.5 Hyperlipidemia, unspecified; E87.6 Hypokalemia; I12.9 Hypertensive chronic kidney disease with stage 1 through stage 4 chronic kidney disease, or unspecified chronic kidney disease; M10.9 Gout, unspecified; R29.6 Repeated falls; F17.210 Nicotine dependence, cigarettes, uncomplicated; S70.311A Abrasion, right thigh, initial encounter; W18.39XA Other fall on same level, initial encounter; Y93.89 Activity, other specified; Y92.89 Other specified places as the place of occurrence of the external cause; Y99.8 Other external cause status; F10.10 Alcohol abuse, uncomplicated; Z71.6 Tobacco abuse counseling; E66.9 Obesity, unspecified; Z68.30 Body mass index [BMI] 30.0-30.9, adult
CPT/HCPCS: 36415; 71045; 80048; 80053; 80061; 80305; 81003; 82550; 82553; 83735; 83880; 84100; 84134; 84443; 84484; 85025; 85610; 93005; 93306; 93971; 97162; 99285; G0482; J1650; J3411; J3490; J7030

== ENCOUNTER 2017-12-26 20:44 | Emergency (ER) | payer MEDICAID ==
[~2017-12-26] VITALS: Ht 172.7 cm; Wt 82.0 kg
[~2017-12-26 20:44] MED LIST changes: -L25 MT
[2017-12-26 22:50] LABS: BASOPHILS % 1.1 % (0.0-2.0); EOSINOPHILS % 2.6 % (0.0-5.0); HEMATOCRIT. 31.1 % (42.0-52.0); HEMOGLOBIN. 10.4 g/dL (14.0-18.0); LYMPHOCYTES % 26.4 % (20.0-50.0); MEAN CORPUSCULAR HEMOGLOBIN 30.2 pg (28.0-32.0); MEAN PLATELET VOLUME 7.4 fl (7.4-10.4); MONOCYTES % 6.9 % (2.0-8.0); PLATELET 249 x1000/uL (130-400); RED BLOOD CELL COUNT 3.46 mill/uL (4.7-6.1)
[2017-12-26 22:57] LABS: CLARITY URINE CLEAR (CLEAR); COLOR URINE YELLOW (YELLOW); KETONES URINE NEGATIVE (NEGATIVE); LEUKOCYTE ESTERASE URINE NEGATIVE (NEGATIVE); NITRITE URINE NEGATIVE (NEGATIVE); OCCULT BLOOD URINE NEGATIVE (NEGATIVE); PROTEIN URINE 3+ (NEGATIVE); SPECIFIC GRAVITY URINE 1.005 (1.005-1.030); UROBILINOGEN URINE 0.2 E.U./dL (0.2-1.0)
[2017-12-26 22:59] LABS: CHLORIDE 105 mEq/L (98-107); ETHANOL BLOOD 267 mg/dL
[2017-12-27] MEDS ORDERED: SODIUM CHLORIDE 0.9% 1,000 ML IV SCH
[2017-12-27 02:45] VITALS: BP 123/83
== END 2017-12-27 02:45 | disposition home or self-care (01) ==
LOC: ER 21:09
DX: F10.129 Alcohol abuse with intoxication, unspecified (principal); M25.561 Pain in right knee; Z86.73 Personal history of transient ischemic attack (TIA), and cerebral infarction without residual deficits; K86.1 Other chronic pancreatitis; R74.0 Nonspecific elevation of levels of transaminase and lactic acid dehydrogenase [LDH]; E11.22 Type 2 diabetes mellitus with diabetic chronic kidney disease; I12.9 Hypertensive chronic kidney disease with stage 1 through stage 4 chronic kidney disease, or unspecified chronic kidney disease; N18.9 Chronic kidney disease, unspecified; F17.200 Nicotine dependence, unspecified, uncomplicated; K76.9 Liver disease, unspecified; Z79.899 Other long term (current) drug therapy; E78.5 Hyperlipidemia, unspecified; R47.81 Slurred speech; Y90.8 Blood alcohol level of 240 mg/100 ml or more
CPT/HCPCS: 36415; 73562; 80053; 81003; 83690; 85025; 85610; 96360; 96361; 99285; G0482; J7030

== ENCOUNTER 2018-01-27 20:23 | Emergency (ER) | payer MEDICAID | END 2018-01-27 23:56 | disposition left against medical advice (07) | LOC: ER 20:23 | DX: Z53.21 Procedure and treatment not carried out due to patient leaving prior to being seen by health care provider (principal) ==

== ENCOUNTER 2018-02-08 13:34 | Emergency (ER) | payer MEDICAID ==
[~2018-02-08] VITALS: Ht 172.7 cm; Wt 80.0 kg
[2018-02-08] MEDS ORDERED: ONDANSETRON HCL 4MG/2ML INJ IV ONE (15:15)
[2018-02-08] MEDS ORDERED: SODIUM CHLORIDE 0.9% 1,000 ML IV ONE (15:15)
[2018-02-08] MEDS ORDERED: CYANOCOBALAMIN 1000MCG/ML VIAL IM SCH (15:15)
[2018-02-08 15:56] VITALS: BP 127/82
[2018-02-08 16:08] LABS: BASOPHILS % 2.4 % (0.0-2.0); EOSINOPHILS % 4.8 % (0.0-5.0); HEMATOCRIT. 36.6 % (42.0-52.0); HEMOGLOBIN. 12.3 g/dL (14.0-18.0); LYMPHOCYTES % 23.8 % (20.0-50.0); MEAN CORPUSCULAR HEMOGLOBIN 29.9 pg (28.0-32.0); MEAN PLATELET VOLUME 8.8 fl (7.4-10.4); MONOCYTES % 8.1 % (2.0-8.0); NEUTROPHILS % 60.9 % (40.0-76.0); PLATELET 223 x1000/uL (130-400); RED BLOOD CELL COUNT 4.11 mill/uL (4.7-6.1); RED CELL DISTRIBUTION WIDTH 15.6 % (11.6-14.6)
[2018-02-08 16:14] LABS: CHLORIDE 102 mEq/L (98-107)
[2018-02-08 16:18] LABS: ETHANOL BLOOD 264 mg/dL
== END 2018-02-08 18:36 | disposition left against medical advice (07) ==
LOC: ER 15:01
DX: R55 Syncope and collapse (principal); F10.129 Alcohol abuse with intoxication, unspecified; Y90.8 Blood alcohol level of 240 mg/100 ml or more; K70.9 Alcoholic liver disease, unspecified; R74.0 Nonspecific elevation of levels of transaminase and lactic acid dehydrogenase [LDH]; E72.20 Disorder of urea cycle metabolism, unspecified; I10 Essential (primary) hypertension; E86.0 Dehydration; K21.9 Gastro-esophageal reflux disease without esophagitis; E83.51 Hypocalcemia; K72.90 Hepatic failure, unspecified without coma; E87.70 Fluid overload, unspecified; E11.9 Type 2 diabetes mellitus without complications; Z86.73 Personal history of transient ischemic attack (TIA), and cerebral infarction without residual deficits
CPT/HCPCS: 36415; 71045; 80053; 82140; 83880; 84484; 85025; 87040; 93005; 96361; 96372; 96374; 99284; G0482; J2405; J3420; J7030

== ENCOUNTER 2018-02-23 18:45 | Emergency (ER) | payer MEDICAID ==
[~2018-02-23] VITALS: Ht 172.7 cm; Wt 97.0 kg
[2018-02-23 18:49] VITALS: BP 165/102
== END 2018-02-23 22:00 | disposition left against medical advice (07) ==
LOC: ER 18:45
DX: Z53.21 Procedure and treatment not carried out due to patient leaving prior to being seen by health care provider (principal)

== ENCOUNTER 2018-02-27 15:21 | Emergency (ER) | payer MEDICAID ==
[~2018-02-27] VITALS: Ht 167.6 cm; Wt 77.0 kg
[2018-02-27] MEDS ORDERED: BACITRACIN ZINC OINT UDPKT TOP ONE (16:00)
[2018-02-27 17:45] VITALS: BP 122/79
== END 2018-02-27 17:52 | disposition home or self-care (01) ==
LOC: ER 15:38
DX: S50.311A Abrasion of right elbow, initial encounter (principal); S80.212A Abrasion, left knee, initial encounter; S80.211A Abrasion, right knee, initial encounter; E11.9 Type 2 diabetes mellitus without complications; I10 Essential (primary) hypertension; K21.9 Gastro-esophageal reflux disease without esophagitis; Z86.73 Personal history of transient ischemic attack (TIA), and cerebral infarction without residual deficits; Z91.14 Patient's other noncompliance with medication regimen; W01.0XXA Fall on same level from slipping, tripping and stumbling without subsequent striking against object, initial encounter; Y93.89 Activity, other specified; Y92.89 Other specified places as the place of occurrence of the external cause
CPT/HCPCS: 73560; 99283

== ENCOUNTER 2018-03-01 14:05 | Emergency (ER) | payer MEDICAID ==
[~2018-03-01] VITALS: Ht 172.7 cm; Wt 80.0 kg
[2018-03-01 15:32] VITALS: BP 154/91
[2018-03-01 16:23] LABS: BASOPHILS % 1.3 % (0.0-2.0); EOSINOPHILS % 0.6 % (0.0-5.0); HEMATOCRIT. 38.1 % (42.0-52.0); HEMOGLOBIN. 12.5 g/dL (14.0-18.0); MEAN CORPUSCULAR HEMOGLOBIN 29.2 pg (28.0-32.0); MEAN CORPUSCULAR VOLUME 89.1 fL (80.0-94.0); MEAN PLATELET VOLUME 7.8 fl (7.4-10.4); NEUTROPHILS % 73.1 % (40.0-76.0); PLATELET 266 x1000/uL (130-400); RED BLOOD CELL COUNT 4.28 mill/uL (4.7-6.1)
[2018-03-01 16:29] LABS: CHLORIDE 104 mEq/L (98-107)
[2018-03-01 16:41] LABS: ETHANOL BLOOD 289 mg/dL
[2018-03-01] MEDS ORDERED: DILTIAZEM HCL 5MG/ML 5ML VIAL IV ONE (17:00)
[2018-03-01 17:36] LABS: CLARITY URINE CLEAR (CLEAR); COLOR URINE YELLOW (YELLOW); KETONES URINE NEGATIVE (NEGATIVE); LEUKOCYTE ESTERASE URINE NEGATIVE (NEGATIVE); NITRITE URINE NEGATIVE (NEGATIVE); OCCULT BLOOD URINE TRACE (NEGATIVE); PH URINE 5.5 (4.5-8.0); PROTEIN URINE 3+ (NEGATIVE); SPECIFIC GRAVITY URINE 1.005 (1.005-1.030); UROBILINOGEN URINE 0.2 E.U./dL (0.2-1.0)
[2018-03-01 17:49] LABS: *AMPHETAMINES SCREEN URINE NEGATIVE (NEGATIVE); *BARBITURATES SCREEN URINE NEGATIVE (NEGATIVE); *BENZODIAZEPINES SCREEN URINE NEGATIVE (NEGATIVE); *COCAINE SCREEN URINE NEGATIVE (NEGATIVE); METHADONE URINE SCREEN NEGATIVE (NEGATIVE); OPIATES URINE SCREEN NEGATIVE (NEGATIVE)
[2018-03-01 17:50] LABS: CANNABINOID URINE SCREEN NEGATIVE (NEGATIVE); PHENCYCLIDINE URINE SCREEN NEGATIVE (NEGATIVE)
== END 2018-03-01 16:30 | disposition left against medical advice (07) ==
LOC: ER 14:20
DX: G93.40 Encephalopathy, unspecified (principal); F10.129 Alcohol abuse with intoxication, unspecified; I10 Essential (primary) hypertension; E11.9 Type 2 diabetes mellitus without complications; F17.200 Nicotine dependence, unspecified, uncomplicated; Y90.8 Blood alcohol level of 240 mg/100 ml or more; Z71.6 Tobacco abuse counseling
CPT/HCPCS: 36415; 70450; 80053; 80305; 81003; 82962; 85025; 99284; 99406; G0482

== ENCOUNTER 2018-03-15 09:38 | Emergency (ER) | payer MEDICAID ==
[~2018-03-15] VITALS: Ht 172.7 cm; Wt 90.0 kg
[2018-03-15] MEDS ORDERED: SODIUM CHLORIDE 0.9% 1,000 ML IV ONE (11:23)
[2018-03-15 12:16] LABS: BASOPHILS % 0.8 % (0.0-2.0); EOSINOPHILS % 0.9 % (0.0-5.0); HEMATOCRIT. 33.3 % (42.0-52.0); LYMPHOCYTES % 17.1 % (20.0-50.0); MEAN CORPUSCULAR HEMOGLOBIN 29.6 pg (28.0-32.0); MEAN CORPUSCULAR VOLUME 89.8 fL (80.0-94.0); MEAN PLATELET VOLUME 7.5 fl (7.4-10.4); MONOCYTES % 7.8 % (2.0-8.0); NEUTROPHILS % 73.4 % (40.0-76.0); PLATELET 213 x1000/uL (130-400); RED BLOOD CELL COUNT 3.71 mill/uL (4.7-6.1)
[2018-03-15 12:21] LABS: INR 0.9; PROTHROMBIN TIME 9.2 sec (9.1-11.1)
[2018-03-15 12:22] LABS: CHLORIDE 103 mEq/L (98-107)
[2018-03-15 13:03] LABS: ETHANOL BLOOD 311 mg/dL
[2018-03-15 14:00] VITALS: BP 134/71
[2018-03-15] MEDS ORDERED: ACETAMINOPHEN 650MG/20.3ML UDC PO ONE (14:00)
[2018-03-15 15:20] LABS: CLARITY URINE CLEAR (CLEAR); COLOR URINE YELLOW (YELLOW); KETONES URINE NEGATIVE (NEGATIVE); LEUKOCYTE ESTERASE URINE NEGATIVE (NEGATIVE); NITRITE URINE NEGATIVE (NEGATIVE); OCCULT BLOOD URINE 1+ (NEGATIVE); PROTEIN URINE 3+ (NEGATIVE); SPECIFIC GRAVITY URINE 1.009 (1.005-1.030); UROBILINOGEN URINE 0.2 E.U./dL (0.2-1.0)
[2018-03-15 15:34] LABS: CANNABINOID URINE SCREEN NEGATIVE (NEGATIVE); PHENCYCLIDINE URINE SCREEN NEGATIVE (NEGATIVE)
[2018-03-15 15:35] LABS: *AMPHETAMINES SCREEN URINE NEGATIVE (NEGATIVE); *BARBITURATES SCREEN URINE NEGATIVE (NEGATIVE); *BENZODIAZEPINES SCREEN URINE NEGATIVE (NEGATIVE); *COCAINE SCREEN URINE NEGATIVE (NEGATIVE); METHADONE URINE SCREEN NEGATIVE (NEGATIVE); OPIATES URINE SCREEN NEGATIVE (NEGATIVE)
== END 2018-03-15 17:10 | disposition left against medical advice (07) ==
LOC: ER 09:51
DX: S89.81XA Other specified injuries of right lower leg, initial encounter (principal); F10.129 Alcohol abuse with intoxication, unspecified; Y90.8 Blood alcohol level of 240 mg/100 ml or more; W01.0XXA Fall on same level from slipping, tripping and stumbling without subsequent striking against object, initial encounter; Y93.01 Activity, walking, marching and hiking; Y92.9 Unspecified place or not applicable; E11.9 Type 2 diabetes mellitus without complications; I10 Essential (primary) hypertension
CPT/HCPCS: 36415; 73560; 80053; 80305; 81003; 83690; 83880; 84484; 85025; 85610; 93005; 96360; 99284; G0482; J7030

== ENCOUNTER 2018-03-30 13:12 | Emergency (ER) | payer MEDICAID ==
[~2018-03-30] VITALS: Ht 172.7 cm; Wt 96.0 kg
[2018-03-30 13:13] VITALS: BP 128/76
[2018-03-30] MEDS ORDERED: BACITRACIN ZINC OINT UDPKT TOP ONE (16:00)
== END 2018-03-30 16:51 | disposition home or self-care (01) ==
LOC: ER 13:31
DX: S80.211A Abrasion, right knee, initial encounter (principal); M13.851 Other specified arthritis, right hip; E11.9 Type 2 diabetes mellitus without complications; I10 Essential (primary) hypertension; F17.200 Nicotine dependence, unspecified, uncomplicated; Z79.899 Other long term (current) drug therapy; W17.89XA Other fall from one level to another, initial encounter; Y93.89 Activity, other specified; Y92.89 Other specified places as the place of occurrence of the external cause; Y99.8 Other external cause status
CPT/HCPCS: 73502; 73562; 93971; 99284

== ENCOUNTER 2018-05-04 18:56 | Inpatient (IN) | payer MEDICAID ==
[~2018-05-04] VITALS: Ht 165.1 cm; Wt 72.6 kg
[2018-05-05] MEDS ORDERED: LORAZEPAM 2MG/ML CPJ IV STA (05:11)
[2018-05-05] MEDS ORDERED: SODIUM CHLORIDE 0.9% 1,000 ML IV ONE (05:11)
[2018-05-05] MEDS ORDERED: ONDANSETRON HCL 4MG/2ML INJ IV STA (05:11)
[2018-05-05 06:10] LABS: BASOPHILS % 1.1 % (0.0-2.0); EOSINOPHILS % 7.8 % (0.0-5.0); HEMATOCRIT. 29.5 % (42.0-52.0); HEMOGLOBIN. 9.6 g/dL (14.0-18.0); MEAN CORPUSCULAR HEMOGLOBIN 29.2 pg (28.0-32.0); MEAN CORPUSCULAR VOLUME 89.7 fL (80.0-94.0); MEAN PLATELET VOLUME 7.1 fl (7.4-10.4); MONOCYTES % 7.7 % (2.0-8.0); NEUTROPHILS % 64.4 % (40.0-76.0); PLATELET 252 x1000/uL (130-400); RED BLOOD CELL COUNT 3.29 mill/uL (4.7-6.1); RED CELL DISTRIBUTION WIDTH 14.9 % (11.6-14.6)
[2018-05-05 06:14] LABS: CHLORIDE 112 mEq/L (98-107)
[2018-05-05 06:18] LABS: ETHANOL BLOOD 65 mg/dL
[2018-05-05] MEDS ORDERED: PANTOPRAZOLE SODIUM 40 MG/VIAL IV ONE (07:15)
[2018-05-05 09:34] LABS: CLARITY URINE CLEAR (CLEAR); COLOR URINE YELLOW (YELLOW); KETONES URINE NEGATIVE (NEGATIVE); LEUKOCYTE ESTERASE URINE NEGATIVE (NEGATIVE); NITRITE URINE NEGATIVE (NEGATIVE); OCCULT BLOOD URINE NEGATIVE (NEGATIVE); PH URINE 5.5 (4.5-8.0); PROTEIN URINE 3+ (NEGATIVE); SPECIFIC GRAVITY URINE 1.014 (1.005-1.030); UROBILINOGEN URINE 0.2 E.U./dL (0.2-1.0)
[2018-05-05 09:53] LABS: *BENZODIAZEPINES SCREEN URINE NEGATIVE (NEGATIVE)
[2018-05-05 09:54] LABS: *COCAINE SCREEN URINE NEGATIVE (NEGATIVE); METHADONE URINE SCREEN NEGATIVE (NEGATIVE); PHENCYCLIDINE URINE SCREEN NEGATIVE (NEGATIVE)
[2018-05-05 09:55] LABS: *AMPHETAMINES SCREEN URINE NEGATIVE (NEGATIVE); *BARBITURATES SCREEN URINE NEGATIVE (NEGATIVE); CANNABINOID URINE SCREEN NEGATIVE (NEGATIVE); OPIATES URINE SCREEN NEGATIVE (NEGATIVE)
[2018-05-05] MEDS ORDERED: IPRATROPIUM/ALBUTEROL 0.5-3(2.5)MG/3ML NEB INH PRN (10:45)
[2018-05-05] MEDS ORDERED: GUAIFENESIN 200MG/10ML SUGAR FREE UDC PO PRN (10:45)
[2018-05-05] MEDS ORDERED: DIPHENHYDRAMINE 50MG/ML VIAL IV PRN (10:45)
[2018-05-05] MEDS ORDERED: DOCUSATE SODIUM 100MG CAPSULE PO PRN (10:45)
[2018-05-05] MEDS ORDERED: ACETAMINOPHEN 325MG TABLET PO PRN (10:45)
[2018-05-05] MEDS ORDERED: ONDANSETRON HCL 4MG/2ML INJ IV PRN (10:45)
[2018-05-05] MEDS ORDERED: HYDROCODONE/ACETAMINOPHEN 5/325MG TABLET PO PRN (10:45)
[2018-05-05] MEDS ORDERED: LORAZEPAM 2MG/ML CPJ IV PRN (10:45)
[2018-05-05 11:04] LABS: PHOSPHORUS 4.5 mg/dL (2.5-4.9)
[2018-05-05] MEDS ORDERED: HYDRALAZINE 20MG/ML VIAL IV NR (13:15)
[2018-05-05] MEDS: CHLORDIAZEPOXIDE 25MG CAPSULE PO SCH ×2 (14:00→22:30)
[2018-05-05 23:44] LABS: CREATINE KINASE MB FRACTION 2.2 ng/mL (0.5-3.6)
[2018-05-06 06:32] LABS: BASOPHILS % 0.9 % (0.0-2.0); EOSINOPHILS % 5.8 % (0.0-5.0); HEMOGLOBIN. 9.7 g/dL (14.0-18.0); LYMPHOCYTES % 15.8 % (20.0-50.0); MEAN CORPUSCULAR HEMOGLOBIN 29.1 pg (28.0-32.0); MEAN CORPUSCULAR VOLUME 90.1 fL (80.0-94.0); MEAN PLATELET VOLUME 7.2 fl (7.4-10.4); MONOCYTES % 8.8 % (2.0-8.0); NEUTROPHILS % 68.7 % (40.0-76.0); PLATELET 222 x1000/uL (130-400); RED BLOOD CELL COUNT 3.33 mill/uL (4.7-6.1); RED CELL DISTRIBUTION WIDTH 14.7 % (11.6-14.6)
[2018-05-06] MEDS: CHLORDIAZEPOXIDE 25MG CAPSULE PO SCH ×3 (06:32→21:03)
[2018-05-06 06:42] LABS: CHLORIDE 112 mEq/L (98-107)
[2018-05-06 06:49] LABS: LDL CHOLESTEROL 85 mg/dL (5-100)
[2018-05-06 06:50] LABS: HDL CHOLESTEROL 103 mg/dL (40-59)
[2018-05-06 10:00] VITALS: BP 180/95
[2018-05-06] MEDS ORDERED: CLONIDINE 0.1MG TABLET PO PRN (10:15)
[2018-05-06 10:38] VITALS: BP 180/95
[2018-05-06 12:00] VITALS: BP 142/84
[2018-05-06 16:00] VITALS: BP 140/88
[2018-05-06 20:00] VITALS: BP 139/79
[2018-05-07] VITALS: BP_SYST 140; BP_SYST 150; BP_DIAS 69; BP_DIAS 70
[2018-05-07 04:00] VITALS: BP 150/91
[2018-05-07 07:39] LABS: BASOPHILS % 0.7 % (0.0-2.0); EOSINOPHILS % 7.2 % (0.0-5.0); HEMATOCRIT. 28.2 % (42.0-52.0); HEMOGLOBIN. 9.1 g/dL (14.0-18.0); LYMPHOCYTES % 20.9 % (20.0-50.0); MEAN CORPUSCULAR HEMOGLOBIN 29.1 pg (28.0-32.0); MEAN CORPUSCULAR VOLUME 89.8 fL (80.0-94.0); MEAN PLATELET VOLUME 7.8 fl (7.4-10.4); NEUTROPHILS % 63.2 % (40.0-76.0); PLATELET 200 x1000/uL (130-400); RED BLOOD CELL COUNT 3.14 mill/uL (4.7-6.1); RED CELL DISTRIBUTION WIDTH 14.8 % (11.6-14.6)
[2018-05-07 08:00] VITALS: BP 159/96
[2018-05-07] MEDS ORDERED: AMLODIPINE 10MG TABLET PO SCH (11:00)
[2018-05-07 12:00] VITALS: BP 150/88
== END 2018-05-07 18:10 | disposition home or self-care (01) | DRG 469 ==
LOC: ER 18:56 → 8WST 05-05 08:25 → ENRESERV 05-06 07:52
PROVIDERS: ADMIT Internal Medicine; ATTEND Internal Medicine
DX: N17.9 Acute kidney failure, unspecified (principal); E11.22 Type 2 diabetes mellitus with diabetic chronic kidney disease; E83.42 Hypomagnesemia; F10.229 Alcohol dependence with intoxication, unspecified; N18.3 Chronic kidney disease, stage 3 (moderate); Y90.3 Blood alcohol level of 60-79 mg/100 ml; E83.51 Hypocalcemia; M10.9 Gout, unspecified; D64.9 Anemia, unspecified; E78.5 Hyperlipidemia, unspecified; F10.239 Alcohol dependence with withdrawal, unspecified; R29.6 Repeated falls; F17.200 Nicotine dependence, unspecified, uncomplicated; I12.9 Hypertensive chronic kidney disease with stage 1 through stage 4 chronic kidney disease, or unspecified chronic kidney disease; I69.351 Hemiplegia and hemiparesis following cerebral infarction affecting right dominant side; Z79.4 Long term (current) use of insulin; Z79.899 Other long term (current) drug therapy; Z71.41 Alcohol abuse counseling and surveillance of alcoholic; Z68.26 Body mass index [BMI] 26.0-26.9, adult; E44.1 Mild protein-calorie malnutrition
CPT/HCPCS: 36415; 71045; 80048; 80061; 80305; 80320; 82550; 82553; 82962; 83605; 83735; 84100; 84484; 93005; 93970; 96374; 96375; 97162; 97166; 99284; 99285; C9113; J0360; J2060; J2405; J7030; G0480

== ENCOUNTER 2018-05-25 05:18 | Emergency (ER) | payer MEDICAID ==
[~2018-05-25] VITALS: Ht 162.6 cm; Wt 79.0 kg
[2018-05-25 07:07] LABS: CLARITY URINE CLEAR (CLEAR); COLOR URINE YELLOW (YELLOW); KETONES URINE NEGATIVE (NEGATIVE); LEUKOCYTE ESTERASE URINE NEGATIVE (NEGATIVE); NITRITE URINE NEGATIVE (NEGATIVE); OCCULT BLOOD URINE NEGATIVE (NEGATIVE); PROTEIN URINE 2+ (NEGATIVE); UROBILINOGEN URINE 0.2 E.U./dL (0.2-1.0)
[2018-05-25 07:15] LABS: BASOPHILS % 0.6 % (0.0-2.0); EOSINOPHILS % 1.2 % (0.0-5.0); HEMATOCRIT. 31.8 % (42.0-52.0); HEMOGLOBIN. 10.4 g/dL (14.0-18.0); LYMPHOCYTES % 9.1 % (20.0-50.0); MEAN CORPUSCULAR HEMOGLOBIN 28.2 pg (28.0-32.0); MEAN CORPUSCULAR VOLUME 86.3 fL (80.0-94.0); MEAN PLATELET VOLUME 7.4 fl (7.4-10.4); MONOCYTES % 6.8 % (2.0-8.0); NEUTROPHILS % 82.3 % (40.0-76.0); PLATELET 337 x1000/uL (130-400); RED BLOOD CELL COUNT 3.69 mill/uL (4.7-6.1); RED CELL DISTRIBUTION WIDTH 14.5 % (11.6-14.6)
[2018-05-25 07:18] LABS: *AMPHETAMINES SCREEN URINE PRESUMTIVE POSITIVE (NEGATIVE); *BARBITURATES SCREEN URINE NEGATIVE (NEGATIVE); *BENZODIAZEPINES SCREEN URINE PRESUMTIVE POSITIVE (NEGATIVE); *COCAINE SCREEN URINE NEGATIVE (NEGATIVE)
[2018-05-25 07:19] LABS: CANNABINOID URINE SCREEN NEGATIVE (NEGATIVE); METHADONE URINE SCREEN NEGATIVE (NEGATIVE); OPIATES URINE SCREEN NEGATIVE (NEGATIVE); PHENCYCLIDINE URINE SCREEN NEGATIVE (NEGATIVE)
[2018-05-25 07:21] LABS: CHLORIDE 104 mEq/L (98-107)
[2018-05-25 07:22] LABS: PROTHROMBIN TIME 10.1 sec (9.6-11.0)
[2018-05-25 07:25] LABS: ETHANOL BLOOD < 10 mg/dL
[2018-05-25 09:33] VITALS: BP 146/74
== END 2018-05-25 09:50 | disposition home or self-care (01) ==
LOC: ER 05:18
DX: T43.621A Poisoning by amphetamines, accidental (unintentional), initial encounter (principal); R10.9 Unspecified abdominal pain; E11.9 Type 2 diabetes mellitus without complications; I10 Essential (primary) hypertension; F17.200 Nicotine dependence, unspecified, uncomplicated; Z79.899 Other long term (current) drug therapy; Z86.73 Personal history of transient ischemic attack (TIA), and cerebral infarction without residual deficits; Y92.89 Other specified places as the place of occurrence of the external cause
CPT/HCPCS: 36415; 74176; 80053; 80305; 80320; 81003; 82962; 83690; 85025; 85610; 93005; 99284; Z7610; G0480

== ENCOUNTER 2018-06-01 00:48 | Inpatient (IN) | payer MEDICAID ==
[~2018-06-01] VITALS: Ht 162.6 cm; Wt 68.0 kg
[2018-06-01] MEDS ORDERED: SODIUM CHLORIDE 0.9% 1,000 ML IV ONE (02:01)
[2018-06-01] MEDS ORDERED: KETOROLAC 30MG/ML VIAL IV STA (02:01)
[2018-06-01 02:36] LABS: BASOPHILS % 1.2 % (0.0-2.0); EOSINOPHILS % 3.5 % (0.0-5.0); HEMATOCRIT. 30.1 % (42.0-52.0); HEMOGLOBIN. 9.9 g/dL (14.0-18.0); LYMPHOCYTES % 22.3 % (20.0-50.0); MEAN CORPUSCULAR HEMOGLOBIN 28.4 pg (28.0-32.0); MEAN CORPUSCULAR VOLUME 86.2 fL (80.0-94.0); MEAN PLATELET VOLUME 7.6 fl (7.4-10.4); MONOCYTES % 7.7 % (2.0-8.0); NEUTROPHILS % 65.3 % (40.0-76.0); PLATELET 293 x1000/uL (130-400); RED CELL DISTRIBUTION WIDTH 14.7 % (11.6-14.6)
[2018-06-01 02:40] LABS: CHLORIDE 103 mEq/L (98-107)
[2018-06-01 02:41] LABS: INR 0.9; PROTHROMBIN TIME 9.7 sec (9.6-11.0)
[2018-06-01 02:44] LABS: ETHANOL BLOOD 189 mg/dL
[2018-06-01] MEDS ORDERED: ACETAMINOPHEN 325MG TABLET PO PRN (05:30)
[2018-06-01 06:48] LABS: CLARITY URINE CLEAR (CLEAR); COLOR URINE YELLOW (YELLOW); KETONES URINE NEGATIVE (NEGATIVE); LEUKOCYTE ESTERASE URINE NEGATIVE (NEGATIVE); NITRITE URINE NEGATIVE (NEGATIVE); OCCULT BLOOD URINE NEGATIVE (NEGATIVE); PROTEIN URINE 2+ (NEGATIVE); SPECIFIC GRAVITY URINE 1.008 (1.005-1.030); UROBILINOGEN URINE 0.2 E.U./dL (0.2-1.0)
[2018-06-01 07:14] LABS: *AMPHETAMINES SCREEN URINE NEGATIVE (NEGATIVE); *BARBITURATES SCREEN URINE NEGATIVE (NEGATIVE); *BENZODIAZEPINES SCREEN URINE NEGATIVE (NEGATIVE); *COCAINE SCREEN URINE NEGATIVE (NEGATIVE); METHADONE URINE SCREEN NEGATIVE (NEGATIVE)
[2018-06-01 07:15] LABS: CANNABINOID URINE SCREEN NEGATIVE (NEGATIVE); OPIATES URINE SCREEN NEGATIVE (NEGATIVE); PHENCYCLIDINE URINE SCREEN NEGATIVE (NEGATIVE)
[2018-06-01 13:00] VITALS: BP 149/86
[2018-06-01] MEDS ORDERED: ONDANSETRON HCL 4MG/2ML INJ IV PRN (14:00)
[2018-06-01] MEDS ORDERED: DOCUSATE SODIUM 100MG CAPSULE PO PRN (14:00)
[2018-06-01] MEDS ORDERED: IPRATROPIUM/ALBUTEROL 0.5-3(2.5)MG/3ML NEB INH PRN (14:00)
[2018-06-01] MEDS ORDERED: MAGNESIUM/ALUMINUM HYDROXIDE/SIMETHICONE 30ML UDC PO PRN (14:00)
[2018-06-01] MEDS ORDERED: CLONIDINE 0.1MG TABLET PO PRN (14:00)
[2018-06-01] MEDS ORDERED: GUAIFENESIN 200MG/10ML SUGAR FREE UDC PO PRN (14:00)
[2018-06-01] MEDS ORDERED: DIPHENHYDRAMINE 50MG/ML VIAL IV PRN (14:00)
[2018-06-01] MEDS ORDERED: INFLUENZA VIRUS VACCINE(AFLURIA) 0.5ML SYR IM ONE (14:15)
[2018-06-01] MEDS: MORPHINE SULFATE 4 MG/ML CPJ (NOT FOR IM USE) IV PRN (14:53)
[2018-06-01] MEDS ORDERED: DEXTROSE 50% WATER 50ML SYRINGE IV PRN (15:30)
[2018-06-01 16:00] VITALS: BP 147/76
[2018-06-01] MEDS ORDERED: LORAZEPAM 2MG/ML CPJ IV PRN (16:30)
[2018-06-01] MEDS: SODIUM CHLORIDE 0.45% 1,000 ML IV SCH (16:51)
[2018-06-01] MEDS: BLOOD SUGAR DIAGNOSTIC STRIP TEST SCH ×2 (17:10→21:00)
[2018-06-01] MEDS: INSULIN LISPRO 100 UNITS/ML SUBCUT SCH ×2 (17:10→21:00)
[2018-06-01] MEDS: CHLORDIAZEPOXIDE 25MG CAPSULE PO SCH ×2 (17:54→23:25)
[2018-06-01 19:21] LABS: PHOSPHORUS 3.5 mg/dL (2.5-4.9)
[2018-06-01 19:25] LABS: CREATINE KINASE MB FRACTION 4.1 ng/mL (0.5-3.6)
[2018-06-01 20:00] VITALS: BP 121/73
[2018-06-01 23:22] LABS: CREATINE KINASE MB FRACTION 1.9 ng/mL (0.5-3.6)
[2018-06-01] MEDS: NICOTINE 14MG PATCH TOP SCH (23:25)
[2018-06-02] VITALS: BP 146/83
[2018-06-02 04:00] VITALS: BP 159/86
[2018-06-02] MEDS: CHLORDIAZEPOXIDE 25MG CAPSULE PO SCH ×3 (05:59→21:23)
[2018-06-02] MEDS: SODIUM CHLORIDE 0.45% 1,000 ML IV SCH ×3 (06:03→21:23)
[2018-06-02] MEDS: MORPHINE SULFATE 4 MG/ML CPJ (NOT FOR IM USE) IV PRN ×2 (06:50→17:39)
[2018-06-02] MEDS: BLOOD SUGAR DIAGNOSTIC STRIP TEST SCH ×4 (06:51→21:00)
[2018-06-02] MEDS: INSULIN LISPRO 100 UNITS/ML SUBCUT SCH ×4 (06:52→21:00)
[2018-06-02 07:25] LABS: EOSINOPHILS % 5.1 % (0.0-5.0); HEMATOCRIT. 29.4 % (42.0-52.0); HEMOGLOBIN. 9.7 g/dL (14.0-18.0); LYMPHOCYTES % 11.6 % (20.0-50.0); MEAN CORPUSCULAR HEMOGLOBIN 28.3 pg (28.0-32.0); MEAN CORPUSCULAR VOLUME 86.1 fL (80.0-94.0); NEUTROPHILS % 74.3 % (40.0-76.0); PLATELET 231 x1000/uL (130-400); RED BLOOD CELL COUNT 3.41 mill/uL (4.7-6.1); RED CELL DISTRIBUTION WIDTH 14.9 % (11.6-14.6)
[2018-06-02 08:00] VITALS: BP 126/74
[2018-06-02 08:38] LABS: CHLORIDE 109 mEq/L (98-107)
[2018-06-02 08:53] LABS: LDL CHOLESTEROL 65 mg/dL (5-100)
[2018-06-02 08:55] LABS: HDL CHOLESTEROL 66 mg/dL (40-59)
[2018-06-02] MEDS: NICOTINE 14MG PATCH TOP SCH (09:00)
[2018-06-02] MEDS: THIAMINE HCL 100MG TABLET PO SCH (09:32)
[2018-06-02 12:00] VITALS: BP 144/84
[2018-06-02 16:00] VITALS: BP 141/89
[2018-06-02 20:00] VITALS: BP 138/82
[2018-06-03] VITALS: BP 143/88
[2018-06-03 04:00] VITALS: BP 144/78
[2018-06-03 06:06] LABS: BASOPHILS % 0.9 % (0.0-2.0); EOSINOPHILS % 7.1 % (0.0-5.0); HEMATOCRIT. 27.1 % (42.0-52.0); HEMOGLOBIN. 8.8 g/dL (14.0-18.0); LYMPHOCYTES % 21.3 % (20.0-50.0); MEAN CORPUSCULAR VOLUME 86.3 fL (80.0-94.0); MEAN PLATELET VOLUME 7.9 fl (7.4-10.4); MONOCYTES % 10.8 % (2.0-8.0); NEUTROPHILS % 59.9 % (40.0-76.0); PLATELET 223 x1000/uL (130-400); RED BLOOD CELL COUNT 3.14 mill/uL (4.7-6.1)
[2018-06-03] MEDS: CHLORDIAZEPOXIDE 25MG CAPSULE PO SCH ×2 (06:58→13:02)
[2018-06-03] MEDS: BLOOD SUGAR DIAGNOSTIC STRIP TEST SCH ×3 (07:20→16:22)
[2018-06-03] MEDS: INSULIN LISPRO 100 UNITS/ML SUBCUT SCH ×2 (07:28→12:50)
[2018-06-03 08:00] VITALS: BP 142/88
[2018-06-03] MEDS: SODIUM CHLORIDE 0.45% 1,000 ML IV SCH (08:37)
[2018-06-03] MEDS: NICOTINE 14MG PATCH TOP SCH (08:37)
[2018-06-03] MEDS: THIAMINE HCL 100MG TABLET PO SCH (08:37)
[2018-06-03 12:00] VITALS: BP 145/84
[2018-06-03] MEDS: MORPHINE SULFATE 4 MG/ML CPJ (NOT FOR IM USE) IV PRN (12:21)
[2018-06-03 15:42] VITALS: BP 145/84
[2018-06-03 16:00] VITALS: BP 150/89
== END 2018-06-03 17:15 | disposition home or self-care (01) | DRG 469 ==
LOC: ER 00:48 → 6EST 05:20 → ENRESERV 10:57
PROVIDERS: ADMIT Internal Medicine; ATTEND Internal Medicine
PROC: 0JBR0ZZ Excision of Left Foot Subcutaneous Tissue and Fascia, Open Approach (ICD-10-PCS; principal; 2018-06-02)
DX: N17.9 Acute kidney failure, unspecified (principal); F10.121 Alcohol abuse with intoxication delirium; E11.22 Type 2 diabetes mellitus with diabetic chronic kidney disease; E11.42 Type 2 diabetes mellitus with diabetic polyneuropathy; F10.231 Alcohol dependence with withdrawal delirium; N18.3 Chronic kidney disease, stage 3 (moderate); E11.621 Type 2 diabetes mellitus with foot ulcer; Y90.6 Blood alcohol level of 120-199 mg/100 ml; I12.9 Hypertensive chronic kidney disease with stage 1 through stage 4 chronic kidney disease, or unspecified chronic kidney disease; F17.200 Nicotine dependence, unspecified, uncomplicated; L97.529 Non-pressure chronic ulcer of other part of left foot with unspecified severity; G62.1 Alcoholic polyneuropathy; M20.42 Other hammer toe(s) (acquired), left foot; I69.351 Hemiplegia and hemiparesis following cerebral infarction affecting right dominant side; M21.612 Bunion of left foot; M21.611 Bunion of right foot; Z91.19 Patient's noncompliance with other medical treatment and regimen
CPT/HCPCS: 36415; 71045; 80048; 80061; 80305; 80320; 82550; 82553; 82962; 83036; 83735; 84100; 84443; 90686; 93005; 93970; 96361; 96374; 97162; 97166; 99285; J1200; J1885; J2270; J2405; J7030; J7040; G0480

== ENCOUNTER 2018-06-17 23:37 | Emergency (ER) | payer MEDICAID ==
[~2018-06-17] VITALS: Ht 165.1 cm; Wt 77.0 kg
[2018-06-18] MEDS ORDERED: IBUPROFEN 600MG TABLET PO STA (00:23)
[2018-06-18 00:44] LABS: BASOPHILS % 1.3 % (0.0-2.0); EOSINOPHILS % 4.8 % (0.0-5.0); HEMATOCRIT. 27.8 % (42.0-52.0); MEAN CORPUSCULAR HEMOGLOBIN 27.7 pg (28.0-32.0); MEAN CORPUSCULAR VOLUME 85.3 fL (80.0-94.0); MEAN PLATELET VOLUME 7.4 fl (7.4-10.4); MONOCYTES % 9.3 % (2.0-8.0); NEUTROPHILS % 64.6 % (40.0-76.0); PLATELET 281 x1000/uL (130-400); RED BLOOD CELL COUNT 3.26 mill/uL (4.7-6.1); RED CELL DISTRIBUTION WIDTH 14.7 % (11.6-14.6)
[2018-06-18 00:51] LABS: CHLORIDE 111 mEq/L (98-107)
[2018-06-18 00:59] LABS: CLARITY URINE CLEAR (CLEAR); COLOR URINE YELLOW (YELLOW); KETONES URINE NEGATIVE (NEGATIVE); LEUKOCYTE ESTERASE URINE NEGATIVE (NEGATIVE); NITRITE URINE NEGATIVE (NEGATIVE); OCCULT BLOOD URINE NEGATIVE (NEGATIVE); PROTEIN URINE 3+ (NEGATIVE); SPECIFIC GRAVITY URINE 1.016 (1.005-1.030); UROBILINOGEN URINE 0.2 E.U./dL (0.2-1.0)
[2018-06-18 00:59] LABS: BETA HYDROXYBUTYRATE 0.5 mMol/L (0.0-0.3)
[2018-06-18] MEDS ORDERED: VISCOUS LIDOCAINE 2% 15 ML UDC MM SCH (01:04)
[2018-06-18] MEDS ORDERED: MAGNESIUM/ALUMINUM HYDROXIDE/SIMETHICONE 30ML UDC PO SCH (01:15)
[2018-06-18 01:48] VITALS: BP 145/76
== END 2018-06-18 02:23 | disposition home or self-care (01) ==
LOC: ER 23:37
DX: G89.29 Other chronic pain (principal); R10.9 Unspecified abdominal pain; L89.899 Pressure ulcer of other site, unspecified stage; E11.9 Type 2 diabetes mellitus without complications; I10 Essential (primary) hypertension; Z86.73 Personal history of transient ischemic attack (TIA), and cerebral infarction without residual deficits; Z79.899 Other long term (current) drug therapy
CPT/HCPCS: 36415; 80053; 81003; 82010; 83690; 85025; 99283; Z7610

== ENCOUNTER 2018-07-05 19:55 | Emergency (ER) | payer MEDICAID ==
[~2018-07-05] VITALS: Ht 154.9 cm; Wt 77.0 kg
[2018-07-06] MEDS ORDERED: SODIUM CHLORIDE 0.9% 1,000 ML IV ONE (04:15)
[2018-07-06] MEDS ORDERED: LEVOFLOXACIN 750MG PREMIX 150 ML IV ONE (04:15)
[2018-07-06 04:45] LABS: BASOPHILS % 1.3 % (0.0-2.0); HEMATOCRIT. 28.1 % (42.0-52.0); HEMOGLOBIN. 9.3 g/dL (14.0-18.0); LYMPHOCYTES % 24.2 % (20.0-50.0); MEAN CORPUSCULAR HEMOGLOBIN 27.8 pg (28.0-32.0); MEAN CORPUSCULAR VOLUME 83.8 fL (80.0-94.0); MEAN PLATELET VOLUME 7.9 fl (7.4-10.4); MONOCYTES % 9.5 % (2.0-8.0); PLATELET 199 x1000/uL (130-400); RED BLOOD CELL COUNT 3.35 mill/uL (4.7-6.1); RED CELL DISTRIBUTION WIDTH 16.4 % (11.6-14.6)
[2018-07-06] MEDS ORDERED: KETOROLAC 30MG/ML VIAL IV ONE (04:45)
[2018-07-06 04:49] LABS: CHLORIDE 111 mEq/L (98-107)
[2018-07-06] MEDS ORDERED: MORPHINE SULFATE 2 MG/ML CPJ (NOT FOR IM USE) IV ONE (05:00)
[2018-07-06 07:00] VITALS: BP 129/86
== END 2018-07-06 07:22 | disposition home or self-care (01) ==
LOC: ER 19:55
DX: L97.518 Non-pressure chronic ulcer of other part of right foot with other specified severity (principal); E11.9 Type 2 diabetes mellitus without complications; I10 Essential (primary) hypertension; F17.200 Nicotine dependence, unspecified, uncomplicated; F15.10 Other stimulant abuse, uncomplicated; Z86.73 Personal history of transient ischemic attack (TIA), and cerebral infarction without residual deficits; Z98.890 Other specified postprocedural states; Z79.899 Other long term (current) drug therapy
CPT/HCPCS: 36415; 80053; 83605; 85025; 96365; 96375; 99283; 99406; J1956; J2270; J7030; J1885

== ENCOUNTER 2018-07-11 19:15 | Inpatient (IN) | payer MEDICAID ==
[~2018-07-11] VITALS: Ht 160 cm; Wt 77.6 kg
[2018-07-11] MEDS ORDERED: SODIUM CHLORIDE 0.9% 1000ML BAG (SEPSIS BOLUS) IV ONE (20:45)
[2018-07-11 21:01] LABS: BASOPHILS % 1.1 % (0.0-2.0); EOSINOPHILS % 3.7 % (0.0-5.0); HEMATOCRIT. 26.3 % (42.0-52.0); HEMOGLOBIN. 8.7 g/dL (14.0-18.0); LYMPHOCYTES % 17.6 % (20.0-50.0); MEAN CORPUSCULAR VOLUME 84.4 fL (80.0-94.0); MEAN PLATELET VOLUME 8.1 fl (7.4-10.4); MONOCYTES % 7.9 % (2.0-8.0); NEUTROPHILS % 69.7 % (40.0-76.0); PLATELET 244 x1000/uL (130-400); RED BLOOD CELL COUNT 3.12 mill/uL (4.7-6.1)
[2018-07-11 21:09] LABS: CHLORIDE 107 mEq/L (98-107); INR 0.9; PROTHROMBIN TIME 9.4 sec (9.6-11.0)
[2018-07-11 21:13] LABS: ETHANOL BLOOD 235 mg/dL
[2018-07-11] MEDS ORDERED: VANCOMYCIN 1 G PREMIX 200 ML IV ONE (21:45)
[2018-07-11] MEDS ORDERED: PIPERACILLIN/TAZ 3.375G PREMIX 50 ML IV ONE (21:45)
[2018-07-12] VITALS (77 sets, daily range): BP systolic 80–172; BP diastolic 48–95
[2018-07-12] MEDS ORDERED: KETOROLAC 30MG/ML VIAL IV ONE (00:15)
[2018-07-12] MEDS ORDERED: NOREPINEPHRINE 4 MG in DEXT 5% WATER 250 ML IV STA (00:15)
[2018-07-12] MEDS ORDERED: NOREPINEPHRINE 4 MG in DEXT 5% WATER 246 ML IV SCH ×2 (00:30→04:00)
[2018-07-12] MEDS ORDERED: NOREPINEPHRINE 4MG/250ML PMX 250 ML IV SCH ×2 (00:30)
[2018-07-12] MEDS ORDERED: DOCUSATE SODIUM 100MG CAPSULE PO PRN (01:15)
[2018-07-12] MEDS ORDERED: ONDANSETRON HCL 4MG/2ML INJ IV PRN (01:15)
[2018-07-12] MEDS ORDERED: ACETAMINOPHEN 325MG TABLET PO PRN (01:15)
[2018-07-12] MEDS ORDERED: IPRATROPIUM/ALBUTEROL 0.5-3(2.5)MG/3ML NEB INH PRN (01:15)
[2018-07-12] MEDS: SODIUM CHLORIDE 0.9% 1,000 ML IV SCH ×2 (02:48→14:19)
[2018-07-12 04:34] LABS: EOSINOPHILS % 5.3 % (0.0-5.0); HEMATOCRIT. 26.2 % (42.0-52.0); HEMOGLOBIN. 8.6 g/dL (14.0-18.0); LYMPHOCYTES % 17.1 % (20.0-50.0); MEAN CORPUSCULAR VOLUME 85.2 fL (80.0-94.0); MEAN PLATELET VOLUME 7.9 fl (7.4-10.4); MONOCYTES % 9.5 % (2.0-8.0); NEUTROPHILS % 67.1 % (40.0-76.0); PLATELET 213 x1000/uL (130-400); RED BLOOD CELL COUNT 3.08 mill/uL (4.7-6.1); RED CELL DISTRIBUTION WIDTH 17.2 % (11.6-14.6)
[2018-07-12 04:47] LABS: LDL CHOLESTEROL 54 mg/dL (5-100)
[2018-07-12 04:48] LABS: HDL CHOLESTEROL 68 mg/dL (40-59)
[2018-07-12 04:49] LABS: CREATINE KINASE 481 IU/L (39-308)
[2018-07-12 04:51] LABS: CREATINE KINASE MB FRACTION 12.8 ng/mL (0.5-3.6)
[2018-07-12] MEDS ORDERED: DEXTROSE 50% WATER 50ML SYRINGE IV PRN (07:15)
[2018-07-12] MEDS: INSULIN LISPRO 100 UNITS/ML SUBCUT SCH ×4 (08:20→20:49)
[2018-07-12] MEDS: BLOOD SUGAR DIAGNOSTIC STRIP TEST SCH ×4 (08:32→20:45)
[2018-07-12] MEDS ORDERED: FOLIC ACID 1 MG, THIAMINE HCL 100 MG, MVI, ADULT NO.1 10 ML in DEXTROSE 5% WATER 1,000 ML IV ONE ×4 (14:30)
[2018-07-12] MEDS: PANTOPRAZOLE 40MG DR TABLET PO SCH ×2 (15:19→20:44)
[2018-07-12 15:57] LABS: CLARITY URINE CLEAR (CLEAR); COLOR URINE YELLOW (YELLOW); KETONES URINE NEGATIVE (NEGATIVE); LEUKOCYTE ESTERASE URINE NEGATIVE (NEGATIVE); NITRITE URINE NEGATIVE (NEGATIVE); OCCULT BLOOD URINE NEGATIVE (NEGATIVE); PROTEIN URINE TRACE (NEGATIVE); UROBILINOGEN URINE 0.2 E.U./dL (0.2-1.0)
[2018-07-12 16:13] LABS: *BARBITURATES SCREEN URINE NEGATIVE (NEGATIVE); *BENZODIAZEPINES SCREEN URINE NEGATIVE (NEGATIVE); *COCAINE SCREEN URINE NEGATIVE (NEGATIVE)
[2018-07-12 16:14] LABS: *AMPHETAMINES SCREEN URINE NEGATIVE (NEGATIVE); CANNABINOID URINE SCREEN NEGATIVE (NEGATIVE); METHADONE URINE SCREEN NEGATIVE (NEGATIVE); OPIATES URINE SCREEN NEGATIVE (NEGATIVE); PHENCYCLIDINE URINE SCREEN NEGATIVE (NEGATIVE)
[2018-07-12 18:13] LABS: HEMATOCRIT 26.5 % (42.0-52.0); HEMOGLOBIN 8.8 g/dL (14.0-18.0)
[2018-07-12 18:28] LABS: TOTAL IRON BINDING CAPACITY 280 ug/dL (250-450)
[2018-07-12 18:31] LABS: CREATINE KINASE 326 IU/L (39-308)
[2018-07-12] MEDS: HYDROCODONE/ACETAMINOPHEN 5/325MG TABLET PO PRN (19:27)
[2018-07-13] VITALS (43 sets, daily range): BP systolic 91–166; BP diastolic 48–93
[2018-07-13 00:44] LABS: HEMATOCRIT 26.3 % (42.0-52.0); HEMOGLOBIN 8.6 g/dL (14.0-18.0)
[2018-07-13] MEDS: SODIUM CHLORIDE 0.9% 1,000 ML IV SCH ×3 (03:08→21:39)
[2018-07-13 04:51] LABS: BASOPHILS % 1.4 % (0.0-2.0); EOSINOPHILS % 5.6 % (0.0-5.0); HEMATOCRIT. 26.4 % (42.0-52.0); HEMOGLOBIN. 8.7 g/dL (14.0-18.0); LYMPHOCYTES % 16.6 % (20.0-50.0); MEAN CORPUSCULAR HEMOGLOBIN 27.6 pg (28.0-32.0); MEAN CORPUSCULAR VOLUME 84.2 fL (80.0-94.0); MEAN PLATELET VOLUME 8.1 fl (7.4-10.4); MONOCYTES % 9.9 % (2.0-8.0); NEUTROPHILS % 66.5 % (40.0-76.0); PLATELET 189 x1000/uL (130-400); RED BLOOD CELL COUNT 3.14 mill/uL (4.7-6.1); RED CELL DISTRIBUTION WIDTH 16.8 % (11.6-14.6)
[2018-07-13 05:17] LABS: PHOSPHORUS 4.4 mg/dL (2.5-4.9)
[2018-07-13] MEDS: INSULIN LISPRO 100 UNITS/ML SUBCUT SCH ×4 (08:20→21:00)
[2018-07-13] MEDS: BLOOD SUGAR DIAGNOSTIC STRIP TEST SCH ×4 (08:32→21:26)
[2018-07-13] MEDS: ALLOPURINOL 100 MG TABLET PO SCH (08:47)
[2018-07-13] MEDS: PANTOPRAZOLE 40MG DR TABLET PO SCH ×2 (08:47→21:39)
[2018-07-13] MEDS: HYDROCODONE/ACETAMINOPHEN 5/325MG TABLET PO PRN (12:08)
[2018-07-13] MEDS ORDERED: POVIDONE-IODINE 10% TOPICAL SOLN 240ML TOP NR (17:00)
[2018-07-14] VITALS (24 sets, daily range): BP systolic 116–169; BP diastolic 68–111
[2018-07-14] MEDS ORDERED: MAGNESIUM 1 G PREMIX 100 ML IV SCH (04:00)
[2018-07-14 05:59] LABS: BASOPHILS % 1.3 % (0.0-2.0); EOSINOPHILS % 7.5 % (0.0-5.0); HEMATOCRIT. 28.7 % (42.0-52.0); HEMOGLOBIN. 9.2 g/dL (14.0-18.0); LYMPHOCYTES % 21.3 % (20.0-50.0); MEAN CORPUSCULAR HEMOGLOBIN 27.6 pg (28.0-32.0); MEAN CORPUSCULAR VOLUME 85.9 fL (80.0-94.0); MONOCYTES % 12.3 % (2.0-8.0); NEUTROPHILS % 57.6 % (40.0-76.0); RED BLOOD CELL COUNT 3.35 mill/uL (4.7-6.1); RED CELL DISTRIBUTION WIDTH 17.2 % (11.6-14.6)
[2018-07-14 06:04] LABS: CHLORIDE 119 mEq/L (98-107)
[2018-07-14 06:25] LABS: PHOSPHORUS 3.3 mg/dL (2.5-4.9)
[2018-07-14] MEDS: INSULIN LISPRO 100 UNITS/ML SUBCUT SCH ×4 (08:16→20:38)
[2018-07-14] MEDS: BLOOD SUGAR DIAGNOSTIC STRIP TEST SCH ×4 (08:16→20:38)
[2018-07-14] MEDS: PANTOPRAZOLE 40MG DR TABLET PO SCH ×2 (08:26→20:39)
[2018-07-14] MEDS: SODIUM CHLORIDE 0.9% 1,000 ML IV SCH ×2 (08:26→17:16)
[2018-07-14] MEDS: ALLOPURINOL 100 MG TABLET PO SCH (08:26)
[2018-07-14 11:15] LABS: PLATELET 181 x1000/uL (130-400)
[2018-07-14] MEDS: CLONIDINE 0.1MG TABLET PO PRN (17:16)
[2018-07-14] MEDS: HYDROCODONE/ACETAMINOPHEN 5/325MG TABLET PO PRN (20:50)
[2018-07-15] VITALS (13 sets, daily range): BP systolic 119–165; BP diastolic 64–104
[2018-07-15] MEDS: CLONIDINE 0.1MG TABLET PO PRN (00:17)
[2018-07-15] MEDS ORDERED: MAGNESIUM 2 G PREMIX 50 ML IV NR (01:00)
[2018-07-15] MEDS: SODIUM CHLORIDE 0.9% 1,000 ML IV SCH ×3 (03:37→22:24)
[2018-07-15 05:43] LABS: BASOPHILS % 1.8 % (0.0-2.0); EOSINOPHILS % 6.2 % (0.0-5.0); LYMPHOCYTES % 14.1 % (20.0-50.0); MEAN CORPUSCULAR HEMOGLOBIN 27.5 pg (28.0-32.0); MEAN CORPUSCULAR VOLUME 85.2 fL (80.0-94.0); MEAN PLATELET VOLUME 8.2 fl (7.4-10.4); MONOCYTES % 9.9 % (2.0-8.0); PLATELET 191 x1000/uL (130-400); RED BLOOD CELL COUNT 3.29 mill/uL (4.7-6.1); RED CELL DISTRIBUTION WIDTH 17.4 % (11.6-14.6)
[2018-07-15] MEDS: PANTOPRAZOLE 40MG DR TABLET PO SCH ×2 (07:50→20:45)
[2018-07-15] MEDS: BLOOD SUGAR DIAGNOSTIC STRIP TEST SCH ×4 (08:00→20:42)
[2018-07-15] MEDS: INSULIN LISPRO 100 UNITS/ML SUBCUT SCH ×4 (08:00→20:50)
[2018-07-15] MEDS: ALLOPURINOL 100 MG TABLET PO SCH (08:02)
[2018-07-15] MEDS ORDERED: CLONIDINE 0.1MG TABLET PO PRN (10:15)
[2018-07-16] VITALS: BP 163/85
[2018-07-16 04:00] VITALS: BP 157/81
[2018-07-16 06:13] LABS: BASOPHILS % 1.1 % (0.0-2.0); EOSINOPHILS % 5.4 % (0.0-5.0); HEMATOCRIT. 27.3 % (42.0-52.0); HEMOGLOBIN. 8.9 g/dL (14.0-18.0); LYMPHOCYTES % 15.2 % (20.0-50.0); MEAN CORPUSCULAR HEMOGLOBIN 27.7 pg (28.0-32.0); MEAN CORPUSCULAR VOLUME 84.6 fL (80.0-94.0); MONOCYTES % 10.9 % (2.0-8.0); NEUTROPHILS % 67.4 % (40.0-76.0); PLATELET 214 x1000/uL (130-400); RED BLOOD CELL COUNT 3.23 mill/uL (4.7-6.1); RED CELL DISTRIBUTION WIDTH 17.6 % (11.6-14.6)
[2018-07-16] MEDS: PANTOPRAZOLE 40MG DR TABLET PO SCH ×2 (06:44→22:09)
[2018-07-16] MEDS: INSULIN LISPRO 100 UNITS/ML SUBCUT SCH ×4 (06:45→22:10)
[2018-07-16] MEDS: BLOOD SUGAR DIAGNOSTIC STRIP TEST SCH ×4 (06:45→22:09)
[2018-07-16 06:52] LABS: PHOSPHORUS 3.7 mg/dL (2.5-4.9)
[2018-07-16 08:00] VITALS: BP 134/85
[2018-07-16] MEDS ORDERED: GUAIFENESIN-DM 200MG-20MG/10ML UDC PO PRN (09:15)
[2018-07-16] MEDS: ALLOPURINOL 100 MG TABLET PO SCH (09:33)
[2018-07-16] MEDS: SODIUM CHLORIDE 0.9% 1,000 ML IV SCH ×2 (09:33→22:09)
[2018-07-16 12:00] VITALS: BP 142/78
[2018-07-16] MEDS ORDERED: SIMETHICONE 40 MG/0.6 ML 30ML ONE (13:11)
[2018-07-16 16:00] VITALS: BP 151/70
[2018-07-16 20:00] VITALS: BP 177/91
[2018-07-16] MEDS ORDERED: LIDOCAINE HCL/PF 1% 10 MG/ML 5ML VIAL ONE (20:13)
[2018-07-16] MEDS ORDERED: DIPHENHYDRAMINE 50MG/ML VIAL ONE (20:13)
[2018-07-16] MEDS ORDERED: FENTANYL CITRATE/PF 50MCG/ML 2ML VIAL ONE (20:13)
[2018-07-16] MEDS ORDERED: MIDAZOLAM HCL 2 MG/2 ML VIAL ONE (20:13)
[2018-07-16] MEDS ORDERED: PROPOFOL 200MG/20ML VIAL IV ONE (20:14)
[2018-07-16] MEDS ORDERED: HYDRALAZINE 20MG/ML VIAL ONE (20:19)
[2018-07-17] VITALS: BP 145/81
[2018-07-17 04:00] VITALS: BP 150/81
[2018-07-17 06:18] LABS: BASOPHILS % 1.1 % (0.0-2.0); HEMATOCRIT. 26.4 % (42.0-52.0); HEMOGLOBIN. 8.8 g/dL (14.0-18.0); LYMPHOCYTES % 20.8 % (20.0-50.0); MEAN CORPUSCULAR HEMOGLOBIN 27.8 pg (28.0-32.0); MEAN CORPUSCULAR VOLUME 83.9 fL (80.0-94.0); MEAN PLATELET VOLUME 7.9 fl (7.4-10.4); MONOCYTES % 14.8 % (2.0-8.0); NEUTROPHILS % 56.3 % (40.0-76.0); PLATELET 211 x1000/uL (130-400); RED BLOOD CELL COUNT 3.15 mill/uL (4.7-6.1); RED CELL DISTRIBUTION WIDTH 17.7 % (11.6-14.6)
[2018-07-17] MEDS: INSULIN LISPRO 100 UNITS/ML SUBCUT SCH ×3 (06:41→17:15)
[2018-07-17] MEDS: BLOOD SUGAR DIAGNOSTIC STRIP TEST SCH ×3 (06:41→18:00)
[2018-07-17] MEDS: PANTOPRAZOLE 40MG DR TABLET PO SCH (06:49)
[2018-07-17 08:00] VITALS: BP 132/90
[2018-07-17] MEDS: ALLOPURINOL 100 MG TABLET PO SCH (08:40)
[2018-07-17 12:00] VITALS: BP 144/51
[2018-07-17 16:00] VITALS: BP 150/80
[2018-07-17 18:24] VITALS: BP 150/80
[2018-07-17] MEDS ORDERED: PANTOPRAZOLE 40MG DR TABLET PO SCH (21:00)
== END 2018-07-17 19:00 | disposition home health service (06) | DRG 720 ==
LOC: ER 19:15 → CVICU 07-12 00:16 → EDBEDREQ 07-12 00:18 → EDBEDREQSVC 07-12 00:18 → EDBEDREQTM 07-12 00:18 → EDBEDREQDT 07-12 00:18 → ENRESERV 07-12 00:50 → 5WST 07-15 09:23
PROVIDERS: ADMIT Internal Medicine; ATTEND Internal Medicine
PROC: B54BZZA Ultrasonography of Right Lower Extremity Veins, Guidance (ICD-10-PCS; 2018-07-12)
PROC: 06HY33Z Insertion of Infusion Device into Lower Vein, Percutaneous Approach (ICD-10-PCS; 2018-07-12)
PROC: 0JBR0ZZ Excision of Left Foot Subcutaneous Tissue and Fascia, Open Approach (ICD-10-PCS; principal; 2018-07-15)
PROC: 0HDMXZZ Extraction of Right Foot Skin, External Approach (ICD-10-PCS; 2018-07-15)
PROC: 0DB68ZX Excision of Stomach, Via Natural or Artificial Opening Endoscopic, Diagnostic (ICD-10-PCS; 2018-07-16)
DX: A41.9 Sepsis, unspecified organism (principal); N17.0 Acute kidney failure with tubular necrosis; E46 Unspecified protein-calorie malnutrition; E11.22 Type 2 diabetes mellitus with diabetic chronic kidney disease; D72.1 Eosinophilia; K29.71 Gastritis, unspecified, with bleeding; E87.2 Acidosis; I95.9 Hypotension, unspecified; E11.42 Type 2 diabetes mellitus with diabetic polyneuropathy; E11.621 Type 2 diabetes mellitus with foot ulcer; E87.5 Hyperkalemia; F10.229 Alcohol dependence with intoxication, unspecified; N18.3 Chronic kidney disease, stage 3 (moderate); M54.2 Cervicalgia; I12.9 Hypertensive chronic kidney disease with stage 1 through stage 4 chronic kidney disease, or unspecified chronic kidney disease; M10.9 Gout, unspecified; I69.351 Hemiplegia and hemiparesis following cerebral infarction affecting right dominant side; D64.9 Anemia, unspecified; L97.529 Non-pressure chronic ulcer of other part of left foot with unspecified severity; F17.210 Nicotine dependence, cigarettes, uncomplicated; E87.8 Other disorders of electrolyte and fluid balance, not elsewhere classified; M20.41 Other hammer toe(s) (acquired), right foot; M20.42 Other hammer toe(s) (acquired), left foot; M20.10 Hallux valgus (acquired), unspecified foot; E86.9 Volume depletion, unspecified; E78.1 Pure hyperglyceridemia; E78.5 Hyperlipidemia, unspecified; G62.1 Alcoholic polyneuropathy; R74.0 Nonspecific elevation of levels of transaminase and lactic acid dehydrogenase [LDH]; K29.70 Gastritis, unspecified, without bleeding; M21.619 Bunion of unspecified foot; Z79.84 Long term (current) use of oral hypoglycemic drugs; Z91.19 Patient's noncompliance with other medical treatment and regimen; Z87.11 Personal history of peptic ulcer disease; Z79.899 Other long term (current) drug therapy; Z68.30 Body mass index [BMI] 30.0-30.9, adult
CPT/HCPCS: 36415; 36556; 71045; 78580; 80048; 80061; 80076; 80305; 80320; 82270; 82550; 82553; 82570; 82728; 82962; 83036; 83540; 83550; 83605; 83735; 83935; 84100; 84145; 84300; 84443; 84484; 85014; 85018; 85379; 88305; 88312; 88313; 93005; 93970; 96365; 96367; 96375; 99285; J0360; J1200; J1815; J1885; J2250; J2543; J2704; J3010; J3370; J3411; J3475; J3490; J7030; J7060; J7070; J7620; G0480

== ENCOUNTER 2018-09-02 21:20 | Emergency (ER) | payer MEDICAID ==
[~2018-09-02] VITALS: Ht 165.1 cm; Wt 73.0 kg
[2018-09-02] MEDS ORDERED: SODIUM CHLORIDE 0.9% 1,000 ML IV ONE (21:41)
[2018-09-02 22:01] LABS: BASOPHILS % 1.7 % (0.0-2.0); EOSINOPHILS % 4.5 % (0.0-5.0); HEMATOCRIT. 31.2 % (42.0-52.0); HEMOGLOBIN. 10.3 g/dL (14.0-18.0); LYMPHOCYTES % 23.8 % (20.0-50.0); MEAN CORPUSCULAR HEMOGLOBIN 28.5 pg (28.0-32.0); MEAN CORPUSCULAR VOLUME 86.4 fL (80.0-94.0); MEAN PLATELET VOLUME 7.9 fl (7.4-10.4); MONOCYTES % 6.2 % (2.0-8.0); NEUTROPHILS % 63.8 % (40.0-76.0); PLATELET 253 x1000/uL (130-400); RED BLOOD CELL COUNT 3.61 mill/uL (4.7-6.1); RED CELL DISTRIBUTION WIDTH 18.2 % (11.6-14.6)
[2018-09-02 22:06] LABS: CHLORIDE 112 mEq/L (98-107)
[2018-09-02 22:10] LABS: ETHANOL BLOOD 269 mg/dL
[2018-09-02 23:58] LABS: CLARITY URINE CLEAR (CLEAR); COLOR URINE YELLOW (YELLOW); KETONES URINE NEGATIVE (NEGATIVE); LEUKOCYTE ESTERASE URINE NEGATIVE (NEGATIVE); NITRITE URINE NEGATIVE (NEGATIVE); OCCULT BLOOD URINE NEGATIVE (NEGATIVE); PROTEIN URINE 1+ (NEGATIVE); SPECIFIC GRAVITY URINE 1.006 (1.005-1.030); UROBILINOGEN URINE 0.2 E.U./dL (0.2-1.0)
[2018-09-03 03:16] VITALS: BP 161/87
== END 2018-09-03 03:42 | disposition home or self-care (01) ==
LOC: ER 21:20
DX: T51.91XA Toxic effect of unspecified alcohol, accidental (unintentional), initial encounter (principal); Y92.9 Unspecified place or not applicable; E11.22 Type 2 diabetes mellitus with diabetic chronic kidney disease; I12.9 Hypertensive chronic kidney disease with stage 1 through stage 4 chronic kidney disease, or unspecified chronic kidney disease; N18.9 Chronic kidney disease, unspecified
CPT/HCPCS: 36415; 80053; 80320; 81003; 85025; 85610; 99283; J7030; Z7610; G0480

== ENCOUNTER 2018-09-28 15:43 | Emergency (ER) | payer MEDICAID ==
[~2018-09-28] VITALS: Ht 170.2 cm; Wt 81.0 kg
[2018-09-28] MEDS ORDERED: ACETAMINOPHEN 325MG TABLET PO ONE (16:30)
[2018-09-28 22:09] VITALS: BP 163/74
== END 2018-09-28 22:21 | disposition home or self-care (01) ==
LOC: ER 15:43
DX: S09.8XXA Other specified injuries of head, initial encounter (principal); S00.11XA Contusion of right eyelid and periocular area, initial encounter; E11.9 Type 2 diabetes mellitus without complications; I10 Essential (primary) hypertension; F15.10 Other stimulant abuse, uncomplicated; Z79.899 Other long term (current) drug therapy; Z86.73 Personal history of transient ischemic attack (TIA), and cerebral infarction without residual deficits; W01.0XXA Fall on same level from slipping, tripping and stumbling without subsequent striking against object, initial encounter; Y93.89 Activity, other specified; Y92.89 Other specified places as the place of occurrence of the external cause; Y99.8 Other external cause status
CPT/HCPCS: 82962; 99284

== ENCOUNTER 2018-12-29 17:52 | Emergency (ER) | payer MEDICAID ==
[~2018-12-29] VITALS: Ht 167.6 cm; Wt 73.0 kg
[2018-12-29] MEDS ORDERED: NAPROXEN 250MG TABLET PO ONE (18:30)
[2018-12-29 21:30] VITALS: BP 131/79
== END 2018-12-29 21:30 | disposition home or self-care (01) ==
LOC: ER 17:52
DX: F10.129 Alcohol abuse with intoxication, unspecified (principal); G89.29 Other chronic pain; I12.9 Hypertensive chronic kidney disease with stage 1 through stage 4 chronic kidney disease, or unspecified chronic kidney disease; N18.9 Chronic kidney disease, unspecified; F17.210 Nicotine dependence, cigarettes, uncomplicated; F15.10 Other stimulant abuse, uncomplicated; E11.9 Type 2 diabetes mellitus without complications; I69.351 Hemiplegia and hemiparesis following cerebral infarction affecting right dominant side; Y90.9 Presence of alcohol in blood, level not specified; Z71.6 Tobacco abuse counseling
CPT/HCPCS: 99283; 99406; Z7610

== ENCOUNTER 2019-02-25 22:08 | Emergency (ER) | payer MEDICAID ==
[~2019-02-25] VITALS: Ht 152.4 cm; Wt 71.0 kg
[2019-02-26 02:46] LABS: HEMATOCRIT. 29.2 % (42.0-52.0); HEMOGLOBIN. 9.7 g/dL (14.0-18.0); MEAN CORPUSCULAR HEMOGLOBIN 29.1 pg (28.0-32.0); MEAN PLATELET VOLUME 7.3 fl (7.4-10.4); PLATELET 244 x1000/uL (130-400); RED BLOOD CELL COUNT 3.32 mill/uL (4.7-6.1); RED CELL DISTRIBUTION WIDTH 16.2 % (11.6-14.6)
[2019-02-26 04:06] LABS: CHLORIDE 114 mEq/L (98-107)
[2019-02-26 04:07] LABS: CREATINE KINASE 488 IU/L (39-308); ETHANOL BLOOD 108 mg/dL
[2019-02-26 04:50] LABS: CLARITY URINE CLEAR (CLEAR); COLOR URINE YELLOW (YELLOW); KETONES URINE NEGATIVE (NEGATIVE); LEUKOCYTE ESTERASE URINE NEGATIVE (NEGATIVE); NITRITE URINE NEGATIVE (NEGATIVE); OCCULT BLOOD URINE 1+ (NEGATIVE); PROTEIN URINE 4+ (NEGATIVE); SPECIFIC GRAVITY URINE 1.014 (1.005-1.030); UROBILINOGEN URINE 0.2 E.U./dL (0.2-1.0)
[2019-02-26 04:59] LABS: PLATELET ESTIMATE NORMAL
[2019-02-26 06:14] LABS: *AMPHETAMINES SCREEN URINE NEGATIVE (NEGATIVE); *BARBITURATES SCREEN URINE NEGATIVE (NEGATIVE); *BENZODIAZEPINES SCREEN URINE NEGATIVE (NEGATIVE); *COCAINE SCREEN URINE NEGATIVE (NEGATIVE)
[2019-02-26 06:15] LABS: CANNABINOID URINE SCREEN NEGATIVE (NEGATIVE); METHADONE URINE SCREEN NEGATIVE (NEGATIVE); OPIATES URINE SCREEN NEGATIVE (NEGATIVE); PHENCYCLIDINE URINE SCREEN NEGATIVE (NEGATIVE)
[2019-02-26 09:04] VITALS: BP 155/80
== END 2019-02-26 09:06 | disposition home or self-care (01) ==
LOC: ER 22:08
DX: S09.8XXA Other specified injuries of head, initial encounter (principal); F10.129 Alcohol abuse with intoxication, unspecified; N18.9 Chronic kidney disease, unspecified; M19.90 Unspecified osteoarthritis, unspecified site; I10 Essential (primary) hypertension; F17.200 Nicotine dependence, unspecified, uncomplicated; W08.XXXA Fall from other furniture, initial encounter; Y93.89 Activity, other specified; Y92.521 Bus station as the place of occurrence of the external cause; Y90.5 Blood alcohol level of 100-119 mg/100 ml; Z86.73 Personal history of transient ischemic attack (TIA), and cerebral infarction without residual deficits
CPT/HCPCS: 36415; 70450; 70486; 80053; 80305; 80320; 81003; 82550; 85025; 93005; 99284; Z7610; G0480

== ENCOUNTER 2019-05-04 23:23 | Emergency (ER) | payer MEDICAID ==
[~2019-05-04] VITALS: Ht 177.8 cm; Wt 79.0 kg
[2019-05-04] MEDS ORDERED: TETANUS, DIPHTHERIA, PERTUSSIS VAC/PF 0.5ML (>7YR OLD) IM ONE (23:45)
[2019-05-04] MEDS ORDERED: IBUPROFEN 600MG TABLET PO ONE (23:45)
[2019-05-05 00:34] LABS: BASOPHILS % 1.1 % (0.0-2.0); EOSINOPHILS % 1.1 % (0.0-5.0); HEMATOCRIT. 26.2 % (42.0-52.0); HEMOGLOBIN. 8.7 g/dL (14.0-18.0); LYMPHOCYTES % 11.4 % (20.0-50.0); MEAN CORPUSCULAR HEMOGLOBIN 27.7 pg (28.0-32.0); MEAN CORPUSCULAR VOLUME 83.4 fL (80.0-94.0); MEAN PLATELET VOLUME 8.1 fl (7.4-10.4); MONOCYTES % 5.8 % (2.0-8.0); NEUTROPHILS % 80.6 % (40.0-76.0); PLATELET 386 x1000/uL (130-400); RED BLOOD CELL COUNT 3.14 mill/uL (4.7-6.1); RED CELL DISTRIBUTION WIDTH 14.8 % (11.6-14.6)
[2019-05-05 00:37] LABS: CHLORIDE 105 mEq/L (98-107)
[2019-05-05 00:45] LABS: ETHANOL BLOOD 86 mg/dL
[2019-05-05 02:12] LABS: CLARITY URINE CLEAR (CLEAR); COLOR URINE YELLOW (YELLOW); KETONES URINE NEGATIVE (NEGATIVE); LEUKOCYTE ESTERASE URINE NEGATIVE (NEGATIVE); NITRITE URINE NEGATIVE (NEGATIVE); OCCULT BLOOD URINE 1+ (NEGATIVE); PROTEIN URINE 3+ (NEGATIVE); SPECIFIC GRAVITY URINE 1.012 (1.005-1.030); UROBILINOGEN URINE 0.2 E.U./dL (0.2-1.0)
[2019-05-05 02:27] LABS: *AMPHETAMINES SCREEN URINE NEGATIVE (NEGATIVE)
[2019-05-05 02:28] LABS: *BARBITURATES SCREEN URINE NEGATIVE (NEGATIVE); *BENZODIAZEPINES SCREEN URINE PRESUMTIVE POSITIVE (NEGATIVE); *COCAINE SCREEN URINE NEGATIVE (NEGATIVE); CANNABINOID URINE SCREEN NEGATIVE (NEGATIVE); METHADONE URINE SCREEN NEGATIVE (NEGATIVE); OPIATES URINE SCREEN NEGATIVE (NEGATIVE); PHENCYCLIDINE URINE SCREEN NEGATIVE (NEGATIVE)
[2019-05-05] MEDS ORDERED: IBUPROFEN 600MG TABLET PO ONE (09:15)
[2019-05-05 16:19] VITALS: BP 161/88
== END 2019-05-05 16:35 | disposition home or self-care (01) ==
LOC: ER 23:23
DX: F10.129 Alcohol abuse with intoxication, unspecified (principal); M79.604 Pain in right leg; E11.9 Type 2 diabetes mellitus without complications; I10 Essential (primary) hypertension; Z86.73 Personal history of transient ischemic attack (TIA), and cerebral infarction without residual deficits; Z59.0 Homelessness; Z98.890 Other specified postprocedural states; Z79.899 Other long term (current) drug therapy; Y90.4 Blood alcohol level of 80-99 mg/100 ml
CPT/HCPCS: 36415; 80053; 80305; 80307; 80320; 80329; 81003; 85025; 90471; 90715; 93005; 99285; G0480

== ENCOUNTER 2019-05-06 22:12 | Emergency (ER) | payer MEDICAID ==
[~2019-05-06] VITALS: Ht 165.1 cm; Wt 76.0 kg
[2019-05-06] MEDS ORDERED: TETANUS, DIPHTHERIA, PERTUSSIS VAC/PF 0.5ML (>7YR OLD) IM ONE (23:30)
[2019-05-07 06:00] VITALS: BP 154/89
== END 2019-05-07 06:08 | disposition home or self-care (01) ==
LOC: ER 22:12
DX: S00.91XA Abrasion of unspecified part of head, initial encounter (principal); S80.212A Abrasion, left knee, initial encounter; S80.211A Abrasion, right knee, initial encounter; S09.90XA Unspecified injury of head, initial encounter; E11.9 Type 2 diabetes mellitus without complications; E78.00 Pure hypercholesterolemia, unspecified; I10 Essential (primary) hypertension; F15.10 Other stimulant abuse, uncomplicated; F17.210 Nicotine dependence, cigarettes, uncomplicated; Z79.899 Other long term (current) drug therapy; Z86.73 Personal history of transient ischemic attack (TIA), and cerebral infarction without residual deficits; W01.0XXA Fall on same level from slipping, tripping and stumbling without subsequent striking against object, initial encounter; Y93.89 Activity, other specified; Y92.89 Other specified places as the place of occurrence of the external cause; Y99.8 Other external cause status
CPT/HCPCS: 70486; 73562; 93005; 99285

== ENCOUNTER 2019-05-10 01:14 | Emergency (ER) | payer MEDICAID ==
[~2019-05-10] VITALS: Ht 170.2 cm; Wt 76.0 kg
[2019-05-10 02:51] LABS: BASOPHILS % 1.2 % (0.0-2.0); CHLORIDE 113 mEq/L (98-107); EOSINOPHILS % 8.3 % (0.0-5.0); HEMATOCRIT. 22.6 % (42.0-52.0); HEMOGLOBIN. 7.6 g/dL (14.0-18.0); LYMPHOCYTES % 22.4 % (20.0-50.0); MEAN CORPUSCULAR HEMOGLOBIN 27.9 pg (28.0-32.0); MEAN CORPUSCULAR VOLUME 83.2 fL (80.0-94.0); MEAN PLATELET VOLUME 7.3 fl (7.4-10.4); MONOCYTES % 7.2 % (2.0-8.0); NEUTROPHILS % 60.9 % (40.0-76.0); PLATELET 301 x1000/uL (130-400); RED BLOOD CELL COUNT 2.72 mill/uL (4.7-6.1); RED CELL DISTRIBUTION WIDTH 15.6 % (11.6-14.6)
[2019-05-10 02:55] LABS: ETHANOL BLOOD 179 mg/dL
[2019-05-10 02:59] LABS: CREATINE KINASE 209 IU/L (39-308)
[2019-05-10 04:36] LABS: CLARITY URINE CLEAR (CLEAR); COLOR URINE YELLOW (YELLOW); KETONES URINE NEGATIVE (NEGATIVE); LEUKOCYTE ESTERASE URINE NEGATIVE (NEGATIVE); NITRITE URINE NEGATIVE (NEGATIVE); OCCULT BLOOD URINE TRACE (NEGATIVE); PROTEIN URINE 3+ (NEGATIVE); UROBILINOGEN URINE 0.2 E.U./dL (0.2-1.0)
[2019-05-10 05:05] LABS: *AMPHETAMINES SCREEN URINE NEGATIVE (NEGATIVE)
[2019-05-10 05:06] LABS: *BARBITURATES SCREEN URINE NEGATIVE (NEGATIVE); *BENZODIAZEPINES SCREEN URINE PRESUMTIVE POSITIVE (NEGATIVE); *COCAINE SCREEN URINE NEGATIVE (NEGATIVE); CANNABINOID URINE SCREEN NEGATIVE (NEGATIVE); METHADONE URINE SCREEN NEGATIVE (NEGATIVE); OPIATES URINE SCREEN NEGATIVE (NEGATIVE); PHENCYCLIDINE URINE SCREEN NEGATIVE (NEGATIVE)
[2019-05-10 06:34] LABS: BASOPHILS % 1.2 % (0.0-2.0); EOSINOPHILS % 10.7 % (0.0-5.0); HEMATOCRIT. 23.9 % (42.0-52.0); LYMPHOCYTES % 28.3 % (20.0-50.0); MEAN CORPUSCULAR HEMOGLOBIN 27.9 pg (28.0-32.0); MEAN CORPUSCULAR VOLUME 83.3 fL (80.0-94.0); MEAN PLATELET VOLUME 7.2 fl (7.4-10.4); MONOCYTES % 6.7 % (2.0-8.0); NEUTROPHILS % 53.1 % (40.0-76.0); PLATELET 269 x1000/uL (130-400); RED BLOOD CELL COUNT 2.87 mill/uL (4.7-6.1); RED CELL DISTRIBUTION WIDTH 15.4 % (11.6-14.6)
[2019-05-10 10:42] VITALS: BP 154/68
== END 2019-05-10 11:24 | disposition home or self-care (01) ==
LOC: ER 01:54
DX: S09.8XXA Other specified injuries of head, initial encounter (principal); F10.129 Alcohol abuse with intoxication, unspecified; M25.561 Pain in right knee; W18.39XA Other fall on same level, initial encounter; Y93.89 Activity, other specified; Y92.89 Other specified places as the place of occurrence of the external cause; Y90.6 Blood alcohol level of 120-199 mg/100 ml; Y99.8 Other external cause status; Z59.0 Homelessness; Z79.899 Other long term (current) drug therapy
CPT/HCPCS: 36415; 73562; 73700; 80053; 80305; 80320; 81003; 82550; 85025; 99284; G0480

== ENCOUNTER 2019-06-04 12:33 | Emergency (ER) | payer MEDICAID ==
[~2019-06-04] VITALS: Ht 165.1 cm; Wt 82.0 kg
[2019-06-04] MEDS ORDERED: SODIUM CHLORIDE 0.9% 1,000 ML IV ONE (14:53)
[2019-06-04 15:20] LABS: CHLORIDE 116 mEq/L (98-107)
[2019-06-04 15:21] LABS: PROTHROMBIN TIME 10.4 sec (9.6-11.0)
[2019-06-04 15:23] LABS: ETHANOL BLOOD < 10 mg/dL
[2019-06-04 16:14] LABS: BASOPHILS % 1.1 % (0.0-2.0); EOSINOPHILS % 6.8 % (0.0-5.0); HEMATOCRIT. 24.4 % (42.0-52.0); LYMPHOCYTES % 14.7 % (20.0-50.0); MEAN CORPUSCULAR HEMOGLOBIN 27.6 pg (28.0-32.0); MEAN CORPUSCULAR VOLUME 84.5 fL (80.0-94.0); MEAN PLATELET VOLUME 8.1 fl (7.4-10.4); MONOCYTES % 12.4 % (2.0-8.0); PLATELET 172 x1000/uL (130-400); RED BLOOD CELL COUNT 2.89 mill/uL (4.7-6.1); RED CELL DISTRIBUTION WIDTH 16.5 % (11.6-14.6)
[2019-06-04 19:10] VITALS: BP 172/75
== END 2019-06-04 19:10 | disposition home or self-care (01) ==
LOC: ER 12:33
DX: R53.1 Weakness (principal); E86.0 Dehydration; S80.212A Abrasion, left knee, initial encounter; I12.9 Hypertensive chronic kidney disease with stage 1 through stage 4 chronic kidney disease, or unspecified chronic kidney disease; N18.9 Chronic kidney disease, unspecified; E11.9 Type 2 diabetes mellitus without complications; F15.10 Other stimulant abuse, uncomplicated; K76.9 Liver disease, unspecified; I69.351 Hemiplegia and hemiparesis following cerebral infarction affecting right dominant side; F10.21 Alcohol dependence, in remission; W01.0XXA Fall on same level from slipping, tripping and stumbling without subsequent striking against object, initial encounter; Y93.89 Activity, other specified; Y92.89 Other specified places as the place of occurrence of the external cause
CPT/HCPCS: 36415; 70450; 80053; 80320; 84484; 85025; 85610; 93005; 96360; 99284; J7030; G0480